=== PATIENT | female | born 1960 | race Caucasian/White ===

== ENCOUNTER 2019-03-29 13:30 | Inpatient (IN) | payer OTHER ==
[2019-03-29] VITALS (28 sets, daily range): BP systolic 46–238; BP diastolic 20–189; PULSE 75–112; RESP 18–38; Ht 157.5 cm; Wt 67.6 kg
[~2019-03-29] VITALS: Ht 157.5 cm; Wt 67.6 kg
[2019-03-29] MEDS ORDERED: ACETAMINOPHEN 650MG/20.3ML CUP NGT STA (13:38)
[2019-03-29] MEDS ORDERED: SODIUM CHLORIDE 0.9% 1L BAG IV* STA (13:38)
--- NOTE | 2019-03-29 13:44 | ERD ---
ER Documentation Chief Complaint Chief Complaint HPI This is a 58-year-old woman with a history of hemorrhagic stroke, respiratory fa ilure and mechanical ventilator dependence via tracheostomy tube, dysphagia with gastrostomy tube, bedbound state and recent urinary tract infection brought in by EMS [facility] for difficulty breathing, coughing, hypoxia. Nurses at the scene state her oxygen saturation dipped into the 80s and despite oxygen remained low which is when they called 911 although upon EMS arrival the patient's oxygen saturation had gone up to 100%. Patient did have a fever today. She has had no chest pain, no vomiting or diarrhea, no blood per rectum, although HPI limited as patient is nonverbal he was supplemented by speaking to her son who was at the bedside, EMS, reviewing past medical history and retirement records ROS All systems reviewed and are negative except as per history of present illness. Medications Home Meds Reported Medications Amantadine Hcl* (Amantadine Hcl*) 50 Mg/5 Ml Syrup, 10 ML GTB BID, #300 ML 03/29/19 Pantoprazole* (Protonix*) 40 Mg Tablet.dr, 40 MG GTB DAILY, TAB 03/29/19 Levetiracetam* (Keppra* (Ped)) 100 Mg/Ml Liq, 5 ML GTB BID for 30 Days, BOTTLE 03/29/19 Levothyroxine Sodium* (Synthroid*) 75 Mcg Tablet, 75 MCG GTB BEFORE BREAKFAST, #30 TAB 03/29/19 Prednisone* (Prednisone*) 5 Mg Tab, 5 MG GTB DAILY, TAB 03/29/19 Hydroxychloroquine Sulfate* (Plaquenil*) 200 Mg Tab, 200 MG GTB BID, TAB 03/29/19 Folic Acid* (Folic Acid*) 1 Mg Tablet, 1 MG GTB DAILY, TAB 03/29/19 Doxazosin Mesylate* (Doxazosin Mesylate*) 2 Mg Tablet, 2 MG GTB HS, TAB HOLD IF SBP<110 03/29/19 Calcium Carbonate (Oysco-500) 500 Mg Tablet, 500 MG GTB BID, TAB 03/29/19 L. Acidophilus/Pectin, [place] (Acidophilus Capsule) 1 Each Capsule, 1 EACH GTB DAILY, CAP 03/29/19 Insulin Regular, Human (Humulin R) 100 Unit/1 Ml Vial, 0 IJ SLIDING SCALE, VIAL IF BS 70-150=0 UNIT,151-200=2 UNITS,201-250=4 UNITS,251-300=6 UNITS, 301-350=8 UNITS, 351-400=10 UNITS,>400=12 UNITS. NOTIFY MD IF BS >400 OR<60. 03/29/19 Insulin Detemir (Levemir Flextouch) 100 Unit/1 Ml Insuln.pen, 5 UNIT SQ QHS, EA 03/29/19 Acetaminophen* (Acetaminophen*) 500 MG Extra Strength Tablet, 1000 MG GTB Q4H OR N for PAIN LEVEL 4-6, TAB 03/29/19 Acetaminophen* (Tylenol*) 325 Mg Tablet, 650 MG GTB NEEDED PRN for TRACH TUBE CHANGE, TAB 03/29/19 Acetaminophen* (Tylenol*) 325 Mg Tablet, 650 MG GTB Q4H PRN for MILD PAIN LEVEL 1-3, TAB AND FEVER 03/29/19 Acetaminophen* (Tylenol*) 325 Mg Tablet, 650 MG GTB BID PRN for PAIN AND OR ELEVATED TEMP, TAB 03/29/19 Zinc Sulfate* (Zinc Sulfate*) 220 Mg Tablet, 220 MG GTB DAILY, TAB 03/29/19 Ascorbic Acid (Vitamin C) 500 Mg Tab, 500 MG GTB DAILY, TAB 03/29/19 Multivitamin with Minerals (Multivitamins with Minerals) 1 Each Tablet, 1 EACH GTB DAILY, TAB 03/29/19 Amino Acids/Protein Hydrolys (PRO-STAT LIQUID) 30 Ml Liquid.pkt, 30 ML GTB DAILY SUGAR FREE 03/29/19 Mineral Oil* (Fleet* Mineral Oil Enema) Unknown Strength Oil, 1 APPLIC OR Q2D PRN for CONSTIPATION, ENEMA 03/29/19 Bisacodyl (Dulcolax) 10 Mg Supp.rect, 10 MG RC DAILY, SUPP.RECT 03/29/19 Magnesium Hydroxide* (Milk Of Magnesia*) 400 Mg/5 Ml Oral.susp, 30 ML GTB DAILY, ML 03/29/19 Sennosides* (Senna Lax*) 8.6 Mg Tablet, 2 TAB GTB DAILY, TAB 03/29/19 Cran/Vitc/Mannose/Inulin/Brom (Uti-Stat Liquid) 3,875 Mg/30 Ml Liquid, 30 ML GTB BID 03/29/19 Allergies Allergies: Coded Allergies: No Known Allergy (Unverified , 03/29/19) PMhx/Soc Past medical history of ruptured intracerebral aneurysm, mechanical ventilator dependent via tracheostomy tube, bedbound, dysphagia status post gastrostomy tube placement, hypothyroidism GERD, diabetes mellitus, Parkinson's disease, hypertension, osteoarthritis, seizure disorder, recent urinary tract infection requiring inpatient IV antibiotics FmHx Family History: No diabetes Physical Exam Vitals Vital Signs Date Temp Pulse Resp B/P (MAP) Pulse Ox O2 O2 Flow FiO2 Time Delivery Rate 03/29/19 99.9 111 18 140/104 100 Mechanical 14:37 (116) Ventilator 03/29/19 125 30 100 100 14:07 03/29/19 99.9 124 24 140/104 100 14:00 (116) 03/29/19 99.3 13:56 Physical Exam GENERAL: Well-developed, chronically debilitated, elderly, dehydrated, febrile HEENT: Dry mucous membranes, pink conjunctive a, tracheostomy tube in place without discharge NEURO: Patient's eyes are open, pupils equal round reactive to light, patient able to move her upper extremities, she has bilateral lower extremity paralysis and contractures, she is responsive to voice but nonverbal CARDIAC: Tachycardic and regular LUNGS: Poor breath sounds bilaterally, no wheezing or stridor ABDOMEN: Soft nontender, no guarding, no rigidity, no rebound, no psoas sign no obturator sign. SKIN: Skin is hot to touch, no hematomas abrasions contusions noted, low back, buttock, sacral skin exams deferred EXTREMITIES: No clubbing cyanosis or edema, calves are bilaterally symmetrical, no Homans sign, no popliteal cord sign. Distal pulses equal and bilateral PSYCH: Normal affect without agitation or irritability Result Diagram: 03/29/19 1350 03/29/19 1350 Results 24 hrs Laboratory Tests Test 03/29/19 13:38 03/29/19 13:44 03/29/19 13:50 Blood Gas Specimen Source Blood arterial Arterial Blood Date Drawn 03/29/2019 2:30:13 PM Arterial Blood pH 7.360 (Temp corrected) Arterial Blood pCO2 29.4 mmhg (Temp correct) Arterial Blood pO2 140.6 mmHG (Temp corrected) Arterial Blood HCO3 16.2 mmol/L Arterial Blood Base Excess -8.2 mmol/L Arterial Blood 98.2 mmHG Oxygen Saturation Christopher Test N/A Arterial Blood Gas Right Brachial Puncture Site Arterial 0.3 % Blood Carboxyhemoglobin Arterial Blood 0.3 % Methemoglobin Blood Gas A-a O2 543.0 mmHg Differential Oxyhemoglobin Percent 97.6 % Blood Gas Temperature 37.0 C Blood Gas Respiration Rate 14.0 Blood Gas Actual 31 Respiration Rate Blood Gas Modality VENT - AC FiO2 100.0 % Blood Gas Tidal Volume 450.0 mL Blood Gas Low PEEP Setting 5.0 cmH2O Blood Gas Notified Whom TM Blood Gas Notified Time 03/29/2019 2:38:43 PM POC Venous Lactate 5.3 mmol/L White Blood Count 11.7 10^3/ul Red Blood Count 3.17 10^6/ul Hemoglobin 9.4 g/dl Hematocrit 31.6 % Mean Corpuscular Volume 99.7 fl Mean Corpuscular Hemoglobin 29.7 pg Mean Corpuscular 29.7 g/dl Hemoglobin Concent Red Cell Distribution Width 17.0 % Platelet Count 341 10^3/UL Mean Platelet Volume 10.8 fl Immature Granulocytes % 2.600 % Neutrophils % % Segmented Neutrophils 6 % % (Manual) Band Neutrophils % (Manual) 50 % Lymphocytes % % Lymphocytes % (Manual) 10 % Reactive Lymphocytes 4 % % (Manual) Monocytes % % Monocytes % (Manual) 5 % Eosinophils % % Eosinophils % (Manual) 2 % Basophils % % Metamyelocytes % (manual) 5 % Myelocytes % (Manual) 16 % Promyelocytes % (Manual) 2 % Nucleated Red Blood Cells % 0.3 /100WBC Immature Granulocytes # 0.310 10^3/ul Neutrophils # 10^3/ul Neutrophils # (Manual) 1.4 10^3/ul Band Neutrophils # 5.8 10^3/ul Lymphocytes (Manual) 1.1 10^3/ul Lymphocytes # 10^3/ul Reactive Lymphocytes # 0.4 10^3/ul Monocytes # 10^3/ul Monocytes # (Manual) 0.5 10^3/ul Eosinophils # 10^3/ul Basophils # 10^3/ul Metamyelocytes # 0.5 10^3/ul Myelocytes # 1.8 10^3/ul Promyelocytes # 0.2 10^3/ul Nucleated Red Blood Cells # 10^3/ul Platelet Estimate NORMAL Giant Platelets 2 % Polychromasia 1+ Poikilocytosis 1+ Anisocytosis 1+ Microcytosis 1+ Prothrombin Time 15.4 Sec Prothrombin Time Ratio 1.2 INR International 1.21 Normalized Ratio Activated 30.1 Sec Partial Thromboplast Time Sodium Level 148 mmol/L Potassium Level 4.7 mmol/L Chloride Level 108 mmol/L Carbon Dioxide Level 20 mmol/L Anion Gap 20 Blood Urea Nitrogen 85 mg/dl Creatinine 4.80 mg/dl Est Glomerular Filtrat 9 mL/min Rate mL/min Glucose Level 81 mg/dl Calcium Level 11.9 mg/dl Total Bilirubin 0.5 mg/dl Direct Bilirubin 0.00 mg/dl Indirect Bilirubin 0.5 mg/dl Aspartate Amino 34 IU/L Transf (AST/SGOT) Alanine 21 IU/L Aminotransferase (ALT/SGPT) Alkaline Phosphatase 212 IU/L Troponin I 0.034 ng/ml Total Protein 6.6 g/dl Albumin 3.4 g/dl Globulin 3.20 g/dl Albumin/Globulin Ratio 1.06 Lipase 14 U/L Current Medications Medications Dose Sig/Mer Start Time Status Last (Trade) Ordered Route PRN Stop Time Admin Dose Reason Admin Sodium 3,000 ml BOLUS OVER 2 03/29/19 DC 03/29/19 Chloride HOURS STAT 13:38 13:56 (NS) IV* 03/29/19 13:42 650 mg ONCE STAT 03/29/19 DC 03/29/19 Acetaminophen NGT 13:38 13:56 (Tylenol 03/29/19 13:42 Liquid) Cefepime HCl 50 ml @ ONCE ONCE 03/29/19 DC 03/29/19 100 mls/hr IVPB 14:00 13:54 03/29/19 14:29 Vancomycin 250 ml @ ONCE ONCE 03/29/19 03/29/19 HCl 125 mls/hr IVPB 14:00 14:43 03/29/19 15:59 Procedures/MDM IV line was established patient was placed on security monitor rhythm strip revealed a narrow complex tachycardia at 120 bpm with upright P and T waves. Patient was febrile, blood and urine cultures were ordered results are pending I will follow-up EKG performed, read by me revealed a sinus tachycardia at 150 bpm, normal axis, narrow QRS complex, no concerning ST elevations or depressions noted 1 view chest x-ray performed, read by me patient has a tracheostomy tube in place with the right upper and lower lobe infiltrates and atelectatic changes bilaterally, no pneumothorax, no air under the diaphragm. Patient was dehydrated and febrile I administered 3 L normal saline IV, acetaminophen for fever, cefepime 1 g IV, and vancomycin 1 g IV CBC reveals mild anemia with a hemoglobin of 9.4, electrolytes revealed dehydration acute kidney injury with a BUN/creatinine of 85/4.8, liver function tests normal, troponin negative, lactic acid elevated just above 5. ABG performed. Reveals a pH of 7.36, PCO2 29, PO2 141. Normal patient's infectious symptoms have not stabilized and the patient is at risk of rapid decompensation. The patient will be admitted for careful hydration, antibiotic therapy, and infectious source control. SEVERE SEPSIS CRITERIA: Infectious source: Healthcare associated pneumonia End organ damage indicated by: [Lactate > 2.0 mmol/L Acute Resp Failure (sat < 92% w/o oxygen) SEPSIS MANAGEMENT Time of recognition of sepsis: Upon arrival. Time of recognition of severe sepsis: No severe sepsis at this time. Time of recognition of septic shock: No septic shock at this time. 3 HOUR BUNDLE Blood cultures x 2 before broad-spectrum antibiotics: Yes 30 ml/kg NS bolus completed Initial lactate 5.3 Repeat lactate pending SEPTIC SHOCK ASSESSMENT: Yes lactic acid > 4.0 No persistent hypotension (SBP < 90 or 40 mmHg drop, MAP < 65) despite 30 mL/kg IV fluid bolus VOLUME REASSESSMENT FOR SEPTIC SHOCK: Reevaluation Time: 1530 Temp 99 F, BP 115/78, pulse 100 bpm, oxygen saturation 100%, respiratory rate 18 breaths/min on mechanical ventilator Heart tachycardic and regular Lungs no crackles Skin warm & dry Cap Refill less than 2 seconds Peripheral pulses radially present PERSISTENT HYPOTENSION TREATMENT: Comfort care no Central line: Not Required at this time, patient's blood pressure is well above 100 mmHg and her tachycardia has improved with just over 1 L of IV crystalloid, if at any time her blood pressure begins to fall I will place a central line Vasopressor started not required I considered further perfusion assessment with CVP measurement, SCVO2, bedside ultrasound volume assessment, passive leg raise, trial of further fluid bolus. And proceeded with 30 ml/kg fluid bolus of NSS, broad spectrum antibiotics, and admission. CRITICAL CARE: Critical care time 35 minutes, this was time separate from other billable procedures. Emergent fluid management while maintaining close respiratory support. Provision of immediate and broad-spectrum antibiotic therapy. Simultaneous assessment for possible sources in order to direct targeted therapy. Consideration for invasive and chemical support to prevent cardiopulmonary collapse. Critical care time is independent of procedures performed. Accepting Care Team: Current data and ongoing care discussed. Time: Time of admission Primary Provider: Hospitalist Consulting: Infectious disease Outstanding Data: none Departure Diagnosis: Primary Impression: Acute respiratory failure Respiratory failure complication: hypoxia and hypercapnia Qualified Codes: J96.01 - Acute respiratory failure with hypoxia; J96.02 - Acute respiratory failure with hypercapnia Additional Impressions: Septic shock Healthcare-associated pneumonia Acute dehydration Acute kidney injury Condition: Serious ROBIN WOO MD March 29, 2019 13:44
[2019-03-29] MEDS ORDERED: CEFEPIME 1GM/50 ML (PMX) 50 ML IVPB ONE (14:00)
[2019-03-29] MEDS ORDERED: VANCOMYCIN 1 GM (PMX) 250 ML IVPB ONE (14:00)
[2019-03-29] MEDS ORDERED: CRAN3875 GTB (14:54)
[2019-03-29] MEDS ORDERED: SENN-120 GTB (14:55)
[2019-03-29] MEDS ORDERED: MAGN400O19 GTB (14:55)
[2019-03-29] MEDS ORDERED: BISA10SU55 RC (14:56)
[2019-03-29] MEDS ORDERED: MINE133E23 PR (14:57)
[2019-03-29] MEDS ORDERED: AMIN30LI GTB (14:58)
[2019-03-29] MEDS ORDERED: ASC500 GTB (14:59)
[2019-03-29] MEDS ORDERED: MULT-105 GTB (14:59)
[2019-03-29] MEDS ORDERED: ZINC220T GTB (15:00)
[2019-03-29] MEDS ORDERED: ACET325T33 GTB ×3 (15:03→15:04)
[2019-03-29] MEDS ORDERED: ACET-141 GTB (15:04)
[2019-03-29] MEDS ORDERED: INSU100I27 SQ (15:05)
[2019-03-29] MEDS ORDERED: INSU100V3 IJ (15:08)
[2019-03-29] MEDS ORDERED: L. A1CAP12 GTB (15:10)
[2019-03-29] MEDS ORDERED: CALC500T11 GTB (15:11)
[2019-03-29] MEDS ORDERED: DOXA2TAB GTB (15:12)
[2019-03-29] MEDS ORDERED: FOLI-49 GTB (15:13)
[2019-03-29] MEDS ORDERED: HYDR200T5 GTB (15:13)
[2019-03-29] MEDS ORDERED: LEVO75TA84 GTB (15:14)
[2019-03-29] MEDS ORDERED: PRED5TAB GTB (15:14)
[2019-03-29] MEDS ORDERED: KEP100S GTB (15:16)
[2019-03-29] MEDS ORDERED: PANT40TA3 GTB (15:17)
[2019-03-29] MEDS ORDERED: UDSYM GTB (15:19)
[2019-03-29] MEDS ORDERED: SOD CHLORIDE 0.9% 1,000 ML IV SCH (15:54)
[2019-03-29] MEDS ORDERED: NACL 0.9% 3 ML SYG IV SCH (16:00)
[2019-03-29] MEDS ORDERED: VANCOMYCIN IV PER PHARMACY XX SCH (16:00)
[2019-03-29] MEDS ORDERED: ONDANSETRON 4 MG INJ IV PRN (16:00)
--- NOTE | 2019-03-29 16:00 | HP ---
Date/Time of Note Date/Time of Note DATE: 03/29/19 TIME: 15:52 Assessment/Plan VTE Prophylaxis Pharmacological prophylaxis: NA/contraindicated Pharm contraindication: renal impairment Lines/Catheters IV Catheter Type (from Nrs): Saline Lock Assessment/Plan Hospital Course 1. Sepsis secondary to HCAP and/or aspiration pneumonia Patient with fevers and leukocytosis Broad-spectrum antibiotics with vancomycin and Zosyn ID consultation obtained Admit to ICU 2. Chronic encephalopathy and respiratory failure Patient resides in a subacute facility Continue vent support Pulmonology consultation 3. Acute kidney injury versus CKD Baseline creatinine unknown IV fluids and monitor Nephrology consultation obtained Renal ultrasound 4. Diabetes Schedule insulin and sliding scale 5. History of hypertension Hold home meds secondary to sepsis Prophylaxis: SCDs Result Diagram: 03/29/19 1350 03/29/19 1350 Results 24hrs Laboratory Tests Test 03/29/19 13:38 03/29/19 13:44 03/29/19 13:50 Blood Gas Specimen Source Blood arterial Arterial Blood Date Drawn 03/29/2019 2:30:13 PM Arterial Blood pH 7.360 (Temp corrected) Arterial Blood pCO2 29.4 L (Temp correct) Arterial Blood pO2 140.6 H (Temp corrected) Arterial Blood HCO3 16.2 L Arterial Blood Base Excess -8.2 L Arterial Blood 98.2 H Oxygen Saturation Christopher Test N/A Arterial Blood Gas Right Brachial Puncture Site Arterial 0.3 Blood Carboxyhemoglobin Arterial Blood Methemoglobin 0.3 Blood Gas A-a O2 543.0 H Differential Oxyhemoglobin Percent 97.6 Blood Gas Temperature 37.0 Blood Gas Respiration Rate 14.0 Blood Gas Actual 31 Respiration Rate Blood Gas Modality VENT - AC FiO2 100.0 Blood Gas Tidal Volume 450.0 Blood Gas Low PEEP Setting 5.0 Blood Gas Notified Whom TM Blood Gas Notified Time 03/29/2019 2:38:43 PM POC Venous Lactate 5.3 *H White Blood Count 11.7 H Red Blood Count 3.17 L Hemoglobin 9.4 L Hematocrit 31.6 L Mean Corpuscular Volume 99.7 Mean Corpuscular Hemoglobin 29.7 Mean Corpuscular 29.7 L Hemoglobin Concent Red Cell Distribution Width 17.0 H Platelet Count 341 Mean Platelet Volume 10.8 H Immature Granulocytes % 2.600 H Neutrophils % Segmented Neutrophils 6 L % (Manual) Band Neutrophils % (Manual) 50 H Lymphocytes % Lymphocytes % (Manual) 10 L Reactive Lymphocytes 4 H % (Manual) Monocytes % Monocytes % (Manual) 5 Eosinophils % Eosinophils % (Manual) 2 Basophils % Metamyelocytes % (manual) 5 H Myelocytes % (Manual) 16 H Promyelocytes % (Manual) 2 H Nucleated Red Blood Cells % 0.3 H Immature Granulocytes # 0.310 H Neutrophils # Neutrophils # (Manual) 1.4 L Band Neutrophils # 5.8 H Lymphocytes (Manual) 1.1 Lymphocytes # Reactive Lymphocytes # 0.4 H Monocytes # Monocytes # (Manual) 0.5 Eosinophils # Basophils # Metamyelocytes # 0.5 H Myelocytes # 1.8 H Promyelocytes # 0.2 H Nucleated Red Blood Cells # Platelet Estimate NORMAL Giant Platelets 2 H Polychromasia 1+ Poikilocytosis 1+ Anisocytosis 1+ Microcytosis 1+ Prothrombin Time 15.4 H Prothrombin Time Ratio 1.2 INR International 1.21 Normalized Ratio Activated 30.1 Partial Thromboplast Time Sodium Level 148 H Potassium Level 4.7 Chloride Level 108 Carbon Dioxide Level 20 L Anion Gap 20 H Blood Urea Nitrogen 85 H Creatinine 4.80 H Est Glomerular Filtrat 9 L Rate mL/min Glucose Level 81 Calcium Level 11.9 H Total Bilirubin 0.5 Direct Bilirubin 0.00 Indirect Bilirubin 0.5 Aspartate Amino 34 Transf (AST/SGOT) Alanine 21 Aminotransferase (ALT/SGPT) Alkaline Phosphatase 212 H Troponin I 0.034 Total Protein 6.6 Albumin 3.4 Globulin 3.20 Albumin/Globulin Ratio 1.06 Lipase 14 L HPI/ROS Admit Date/Time Admit Date/Time March 29, 2019 Hx of Present Illness Patient is a 58-year-old female with a history of diabetes, hypertension and brain aneurysm rupture approximately 4 months ago with chronic encephalopathy and respiratory failure, patient resides in a subacute [facility]. Patient does have history of recent pneumonia status post antibiotic course. Patient had a chest x-ray at the facility which showed pneumonia and was transferred to the ER. In the ER chest x-ray showed bilateral pneumonia, leukocytosis was noted as well as renal failure. Patient is unable to provide history and history is obtained from son who is bedside. ROS Subjective hx not possible: pt non-verbal PMH/Family/Social Past Medical History As per HPI Medications Current Medications Vancomycin HCl 250 ml @ 125 mls/hr ONCE ONCE IVPB Last administered on 03/29/19at 14:43; Admin Dose 125 MLS/HR; Start 03/29/19 at 14:00; Stop 03/29/19 at 15:59 Coded Allergies: No Known Allergy (Unverified , 03/29/19) Family History Significant Family History: no pertinent family hx Social History Alcohol Use: none Smoking Status: Never smoker Drug Use: none Exam/Review of Systems Vital Signs Vitals Vital Signs Date Temp Pulse Resp B/P (MAP) Pulse Ox O2 O2 Flow FiO2 Time Delivery Rate 03/29/19 99.9 111 18 140/104 100 Mechanical 14:37 (116) Ventilator 03/29/19 100 14:07 Exam Constitutional: non-verbal ENMT: other (Tracheostomy) Respiratory: clear to auscultation Cardiovascular: regular rate and rhythm Gastrointestinal: soft; No distended Musculoskeletal: nl extremities to inspection LIBRA MARTINEZ March 29, 2019 16:00
[2019-03-29] MEDS ORDERED: DEXTROSE 50% 50 ML SYRINGE IV PRN ×2 (17:00)
[2019-03-29] MEDS ORDERED: GLUCAGON 1 MG INJ IM PRN (17:00)
[2019-03-29] MEDS ORDERED: GLUCOSE GEL 15 GRAM TUBE PO PRN ×2 (17:00)
[2019-03-29] MEDS ORDERED: GLUCOSE GEL 15 GRAM TUBE BUCCAL PRN (17:00)
[2019-03-29] MEDS: PIPER-TAZO 2.25 GM/NS 50 ML IVPB SCH (17:35)
--- NOTE | 2019-03-29 17:45 | CONS ---
DATE OF ADMISSION: 03/29/2019 DATE OF CONSULTATION: 03/29/2019 TYPE OF CONSULTATION: Infectious disease. REASON FOR CONSULTATION: Antibiotic management. HISTORY OF PRESENT ILLNESS: Millicent Parrish is a 58-year-old female currently in the emergency room. She has history of: 1. Hemorrhagic stroke. 2. Respiratory failure on mechanical ventilatory dependence. 3. Status post tracheostomy. 4. Dysphagia with gastrostomy tube. 5. Bed bound. 6. Recent urinary tract infection. The patient was brought into the custodial facility by EMS for difficulty breathing, coughing a nd hypoxia. Her oxygen saturation dips into the 80s despite supplemental oxygen. It subsequently we nt up to 100%. She had a fever today. She had no chest pain. The patient is nonverbal. She is jacob betic on insulin. PAST MEDICAL HISTORY: Also positive for ruptured intracerebral aneurysm, GERD, Parkinson's disease, seizure disorder and recent urinary tract infections requiring the patient on IV antibiotics. FAMILY HISTORY: Noncontributory. SOCIAL HISTORY: She does not smoke, drink or abuse drugs. ALLERGIES: NONE TO PENICILLIN, SULFA OR FOODS. MEDICATIONS: Per chart. REVIEW OF SYSTEMS: As per HPI. PHYSICAL EXAMINATION: GENERAL: The patient is a well-developed, chronically debilitated elderly female. VITAL SIGNS: Stable. T-max 99.9. SKIN: Without generalized rash. HEENT: She has tracheostomy tube in place. LYMPH NODES: None palpable. CHEST: Decreased breath sounds at the bases. HEART: Without murmur or gallop. She is tachycardic. ABDOMEN: Soft, nontender without organosplenomegaly or masses. EXTREMITIES: Without cyanosis, clubbing or edema. RECTAL AND GENITAL: Deferred. NEUROLOGIC: She has bilateral lower extremity paralysis and contractures. She responds to voice but is nonverbal. ANCILLARY LABORATORY DATA: White count 11.7, H and H 9.4 and 31.6, platelet count 341,000. BUN and creatinine is 85/4.80. IMPRESSION AND PLAN: This is an extremely ill 58-year-old female with history of stroke, Parkinson's disease, ventilatory-dependent respiratory failure, dysphagia on G-tube, renal failure with creatini ne of 4.8 and probably good candidate for hospice. She has sepsis probably secondary to healthcare-a cquired pneumonia. She was started on vancomycin and Zosyn. She will be admitted to the intensive c are unit. Her influenza type A and B are negative. We will continue vancomycin and Zosyn. She had 1 dose of cefepime. I will dictate my findings to the hospitalist. Dictated By: JACOBY HAGER MD, JD/CRISPIN Conf#: [id number] DID#: [id number] CC: LIBRA MARTINEZ MD;*EndCC*
[2019-03-29] MEDS ORDERED: PIPER-TAZO 3.375 GM IV (PMX) 100 ML IVPB SCH (18:00)
[2019-03-29] MEDS ORDERED: LABETALOL HCL 20MG INJ IV PRN (18:00)
[2019-03-29] MEDS ORDERED: INSULIN GLARGINE [LANTus] (100 UNITS/ML) SYG SC SCH (21:00)
[2019-03-29] MEDS: INSULIN GLARGINE [LANTus] (100 UNITS/ML) SYG SC SCH (21:00)
[2019-03-29] MEDS: AMANTADINE 100 MG/10 ML POSYR GTB SCH (21:02)
[2019-03-29] MEDS: CALCIUM CARBONATE 500 MG CHEW TAB GTB SCH (21:02)
[2019-03-29] MEDS: LEVETIRACETAM (100 MG/ML PO SYG) GTB SCH (21:02)
[2019-03-29] MEDS: morphine 2 MG INJ IV PRN (21:03)
[2019-03-29] MEDS: DEXTROSE 5%-0.45% NACL 1,000 ML IV SCH (21:30)
[2019-03-29] MEDS ORDERED: PHENYLephrine 20MG IN 250 ML 250 ML ONE (22:06)
[2019-03-29] MEDS: PHENYLephrine 20MG IN 250 ML 250 ML IV SCH (22:33)
[2019-03-30] VITALS (94 sets, daily range): BP systolic 66–127; BP diastolic 47–88; PULSE 69–89; RESP 14–37
[2019-03-30] MEDS: PHENYLephrine 20MG IN 250 ML 250 ML IV SCH ×2 (00:10→01:49)
[2019-03-30] MEDS: PIPER-TAZO 2.25 GM/NS 50 ML IVPB SCH ×4 (00:29→21:49)
[2019-03-30] MEDS ORDERED: SODIUM CHLORIDE 0.45% 500 ML BAG IV* ONE (01:00)
[2019-03-30] MEDS ORDERED: ALBUMIN HUMAN 25% 100 ML IV ONE (01:30)
[2019-03-30] MEDS ORDERED: SOD CHLORIDE 0.9% 250 ML IV ONE (01:30)
[2019-03-30] MEDS: ACCU-CHEK XX SCH ×6 (01:43→20:58)
[2019-03-30] MEDS ORDERED: SOD CHLORIDE 0.9% 100 ML IV ONE (02:00)
[2019-03-30] MEDS: PHENYLephrine 80 MG in DEXTROSE 5% 242 ML IV SCH ×4 (03:21→23:18)
[2019-03-30] MEDS: LEVOTHYROXINE 75 MCG TAB GTB SCH (06:18)
[2019-03-30] MEDS: SENNA TAB GTB SCH (09:00)
[2019-03-30] MEDS: MAGNESIUM HYDROXIDE 30ML CUP GTB SCH (09:58)
[2019-03-30] MEDS: LEVETIRACETAM (100 MG/ML PO SYG) GTB SCH ×2 (09:58→21:49)
[2019-03-30] MEDS: FOLIC ACID 1 MG TAB GTB SCH (09:59)
[2019-03-30] MEDS: AMANTADINE 100 MG/10 ML POSYR GTB SCH ×2 (09:59→20:58)
[2019-03-30] MEDS: ASCORBIC ACID 500 MG TAB GTB SCH (09:59)
[2019-03-30] MEDS: ZINC SULFATE 220 MG CAP GTB SCH (10:00)
[2019-03-30] MEDS: CALCIUM CARBONATE 500 MG CHEW TAB GTB SCH ×2 (10:00→20:58)
--- NOTE | 2019-03-30 10:48 | CONS ---
Assessment/Plan Assessment/Plan Hospital Course (Demo Recall) ID PROGRESS NOTE CURRENT ABX: DAY # 2-> Vanco IV + Zosyn 03/30/19 0437 03/30/19 0437 24H INTERVAL SUMMARY * Awake, follows commands, low grade TMAX 100.+, hemodynamics improved w/ABX, Chart reviewed DIAGNOSTIC IMAGING * 03/29/19 CXR:Right upper lobe and bilateral lower lobe infiltrates.Small right pleural effusion. * 03/28/2019 MICRO/OTHER * 03/29/19: INFLUENZA A & B BY EIA Final INFLU A&B BY EIA INFLUENZA A NEGATIVE (Ref Range Neg) INFLUENZA B NEGATIVE (Ref Range Neg) * 03/29/19 BCX (+) Organism 1 GRAM POS COCCI IN PAIR,CLUSTER PHYSICAL EXAMINATION: GENERAL: VSS HEENT: AT, NC, anicteric NECK: Supple, CHEST: Equal chest rise bilaterally, without dyspnea on observation HEART: Pulse RRR ABDOMEN: Soft / NT EXTREMITIES: Warm, BLEXT SKIN: multiple stg 2 on the buttocks, upper and lower back, with generalized skin rashes. ID ASSESSMENT 58 yo F w/PMHx encephalopathy 2/2 SAH-> hx of Ventric, chronic VDRF admit with: 1. Sepsis on admission w/tachycardia, fevers, HTN crisis-> low B/P, lactic acidosis due to #2 * 03/29/19 BCX (+) Organism 1 GRAM POS COCCI IN PAIR,CLUSTER 2. Bilateral PNA 3. Chronic VDRF 4. HTN 5. Diabetes 6. Acute on chronic kidney disease 7. Dysphagia-> PEG 8. GERD 9. Chronic bedbound state 10. Multiple pressure decubs 11. Hx of recent UTI ABX ALLERGIES: NKDA INVASIVES: PIV CURRENT ABX: DAY #2-> Vanco IV + Zosyn ID RECOMMENDATIONS/PLAN: 1. Continue current ABX 2. Check MRSA nares 3. Obtain respiratory cx 4. Repeat BCx . . Consultation Date/Type/Reason Admit Date/Time March 29, 2019 at 14:37 Initial Consult Date Date/Time of Note DATE: 03/30/19 TIME: 10:35 Exam/Review of Systems Exam Vitals Vital Signs Date Temp Pulse Resp B/P (MAP) Pulse Ox O2 O2 Flow FiO2 Time Delivery Rate 03/30/19 82 22 94/62 (73) 100 09:45 03/30/19 100.1 Mechanica 08:00 l Ventilato r 03/30/19 40 05:10 Intake and Output 03/29/19 03/29/19 03/30/19 1515:00 23:00 07:00 IntakeIntake Total 397 ml 1731.49 ml OutputOutput Total 29 ml 45 ml BalanceBalance 368 ml 1686.49 ml Results Result Diagram: 03/30/19 0437 03/30/19 0437 Results 24hrs Laboratory Tests Test 03/29/19 13:38 03/29/19 13:44 03/29/19 13:50 03/29/19 17:35 Blood Gas Blood arterial Specimen Source Arterial Blood 03/29/2019 2:30:1 Date Drawn 3 PM Arterial Blood pH 7.360 (Temp corrected) Arterial Blood 29.4 L pCO2 (Temp correct) Arterial Blood 140.6 H pO2 (Temp corrected) Arterial Blood 16.2 L HCO3 Arterial Blood -8.2 L Base Excess Arterial Blood 98.2 H Oxygen Saturation Christopher Test N/A Arterial Blood Right Brachial Gas Puncture Site Arterial 0.3 Blood Carboxyhemo globin Arterial Blood 0.3 Methemoglobin Blood Gas A-a O2 543.0 H Differential Oxyhemoglobin 97.6 Percent Blood Gas 37.0 Temperature Blood Gas 14.0 Respiration Rate Blood Gas Actual 31 Respiration Rate Blood Gas VENT - AC Modality FiO2 100.0 Blood Gas Tidal 450.0 Volume Blood Gas Low 5.0 PEEP Setting Blood Gas TM Notified Whom Blood Gas 03/29/2019 2:38:4 Notified Time 3 PM POC Venous 5.3 *H Lactate White Blood Count 11.7 H Red Blood Count 3.17 L Hemoglobin 9.4 L Hematocrit 31.6 L Mean Corpuscular 99.7 Volume Mean Corpuscular 29.7 Hemoglobin Mean Corpuscular 29.7 L Hemoglobin Concen t Red Cell 17.0 H Distribution Width Platelet Count 341 Mean Platelet 10.8 H Volume Immature 2.600 H Granulocytes % Neutrophils % Segmented 6 L Neutrophils % (Manual) Band Neutrophils 50 H % (Manual) Lymphocytes % Lymphocytes % 10 L (Manual) Reactive 4 H Lymphocytes % (Manual) Monocytes % Monocytes % 5 (Manual) Eosinophils % Eosinophils % 2 (Manual) Basophils % Metamyelocytes % 5 H (manual) Myelocytes % 16 H (Manual) Promyelocytes % 2 H (Manual) Nucleated Red 0.3 H Blood Cells % Immature 0.310 H Granulocytes # Neutrophils # Neutrophils # 1.4 L (Manual) Band Neutrophils 5.8 H # Lymphocytes 1.1 (Manual) Lymphocytes # Reactive 0.4 H Lymphocytes # Monocytes # Monocytes # 0.5 (Manual) Eosinophils # Basophils # Metamyelocytes # 0.5 H Myelocytes # 1.8 H Promyelocytes # 0.2 H Nucleated Red Blood Cells # Platelet Estimate NORMAL Giant Platelets 2 H Polychromasia 1+ Poikilocytosis 1+ Anisocytosis 1+ Microcytosis 1+ Prothrombin Time 15.4 H Prothrombin Time 1.2 Ratio INR International 1.21 Normalized Ratio Activated 30.1 Partial Thrombopl ast Time Sodium Level 148 H Potassium Level 4.7 Chloride Level 108 Carbon Dioxide 20 L Level Anion Gap 20 H Blood Urea 85 H Nitrogen Creatinine 4.80 H Est Glomerular 9 L Filtrat Rate mL/min Glucose Level 81 Calcium Level 11.9 H Total Bilirubin 0.5 Direct Bilirubin 0.00 Indirect 0.5 Bilirubin Aspartate Amino 34 Transf (AST/SGOT) Alanine 21 Aminotransferase (ALT/SGPT) Alkaline 212 H Phosphatase Troponin I 0.034 Total Protein 6.6 Albumin 3.4 Globulin 3.20 Albumin/Globulin 1.06 Ratio Lipase 14 L Lactic Acid Level 10.5 *H Test 03/29/19 21:08 03/30/19 01:29 03/30/19 04:37 03/30/19 05:01 Bedside Glucose 72 88 117 White Blood Count 13.6 H Red Blood Count 2.69 L Hemoglobin 8.0 L Hematocrit 26.6 L Mean Corpuscular 98.9 Volume Mean Corpuscular 29.7 Hemoglobin Mean Corpuscular 30.1 L Hemoglobin Concen t Red Cell 17.2 H Distribution Width Platelet Count 316 Mean Platelet 10.4 Volume Immature 1.300 H Granulocytes % Neutrophils % Segmented 16 L Neutrophils % (Manual) Band Neutrophils 46 H % (Manual) Lymphocytes % Lymphocytes % 21 (Manual) Reactive 1 H Lymphocytes % (Manual) Monocytes % Monocytes % 1 (Manual) Eosinophils % Basophils % Basophils % 1 (Manual) Metamyelocytes % 8 H (manual) Myelocytes % 6 H (Manual) Nucleated Red 0.0 Blood Cells % Immature 0.180 H Granulocytes # Neutrophils # Neutrophils # 3.0 (Manual) Band Neutrophils 6.2 H # Lymphocytes 2.8 (Manual) Lymphocytes # Reactive 0.1 H Lymphocytes # Monocytes # Monocytes # 0.1 L (Manual) Eosinophils # Basophils # Basophils # 0.1 H (Manual) Metamyelocytes # 1.0 H Myelocytes # 0.8 H Nucleated Red Blood Cells # Toxic Granulation 2+ Platelet Estimate NORMAL Poikilocytosis 2+ Anisocytosis 1+ Microcytosis 1+ Sodium Level 148 H Potassium Level 4.8 Chloride Level 114 H Carbon Dioxide 17 L Level Anion Gap 17 H Blood Urea 77 H Nitrogen Creatinine 3.92 H Est Glomerular 12 L Filtrat Rate mL/min Glucose Level 98 Hemoglobin A1c 5.9 Calcium Level 10.0 Phosphorus Level 4.8 Magnesium Level 2.1 Test 03/30/19 09:56 Bedside Glucose 76 Medications Medication Current Medications IV Flush (NS 3 ml) 3 ml PER PROTOCOL IV ; Start 03/29/19 at 16:00 Ondansetron HCl (Zofran Inj) 4 mg Q6H PRN IV NAUSEA/VOMITING; Start 03/29/19 at 16:00 Morphine Sulfate (morphine) 2 mg Q4H PRN IV .SEVERE PAIN 7-10 Last administered on 03/29/19at 21:03; Admin Dose 2 MG; Start 03/29/19 at 16:00 Vancomycin HCl (Vanco Iv Per Pharmacy) VANCOMYCIN PER PHARMACY PER PROTOCOL XX ; Start 03/29/19 at 16:00 Amantadine HCl (Symmetrel) 100 mg BID GTB Last administered on 03/30/19at 09:59; Admin Dose 100 MG; Start 03/29/19 at 21:00 Ascorbic Acid (Vitamin C) 500 mg DAILY GTB Last administered on 03/30/19 09:59; Admin Dose 500 MG; Start 03/30/19 at 09:00 Calcium Carbonate (Tums) 500 mg BID GTB Last administered on 03/30/19at 10:00; Admin Dose 500 MG; Start 03/29/19 at 21:00 Folic Acid (Folic Acid) 1 mg DAILY GTB Last administered on 03/30/19 09:59; Admin Dose 1 MG; Start 03/30/19 at 09:00 Levetiracetam (Keppra Liq (Ped)) 500 mg BID GTB Last administered on 5/11/19at 09:58; Admin Dose 500 MG; Start 03/29/19 at 21:00 Levothyroxine Sodium (Synthroid) 75 mcg BEFORE BREAKFAST GTB Last administered on 03/30/19at 06:18; Admin Dose 75 MCG; Start 03/30/19 at 07:00 Magnesium Hydroxide (Milk Of Mag) 30 ml DAILY GTB Last administered on 03/30/19at 09:58; Admin Dose 30 ML; Start 03/30/19 at 09:00 Senna (Senokot) 2 tab DAILY GTB ; Start 03/30/19 at 09:00 Zinc Sulfate (Zinc Sulfate) 220 mg DAILY GTB Last administered on 03/30/19at 10:00; Admin Dose 220 MG; Start 03/30/19 at 09:00 Miscellaneous Information 1 ea NOTE XX ; Start 03/29/19 at 17:00 Glucose (Glutose) 15 gm Q15M PRN PO DECREASED GLUCOSE; Start 03/29/19 at 17:00 Glucose (Glutose) 22.5 gm Q15M PRN PO DECREASED GLUCOSE; Start 03/29/19 at 17:00 Dextrose (D50w Syringe) 25 ml Q15M PRN IV DECREASED GLUCOSE; Start 03/29/19 at 17:00 Dextrose (D50w Syringe) 50 ml Q15M PRN IV DECREASED GLUCOSE; Start 03/29/19 at 17:00 Glucagon (Glucagen) 1 mg Q15M PRN IM DECREASED GLUCOSE; Start 03/29/19 at 17:00 Glucose (Glutose) 15 gm Q15M PRN BUCCAL DECREASED GLUCOSE; Start 03/29/19 at 17:00 Labetalol HCl (Labetalol) 20 mg Q4 PRN IV sbp >170 Last administered on 03/29/19at 17:55; Admin Dose 20 MG; Start 03/29/19 at 18:00 Insulin Glargine (Lantus) 5 units QHS SC ; Start 03/29/19 at 21:00 Diagnostic Test (Pha) (Accu-Chek) 1 ea Q4 XX Last administered on 03/30/19at 05:02; Admin Dose 1 EA; Start 03/30/19 at 01:00 Dextrose/Sodium Chloride 1,000 ml @ 75 mls/hr [id number] IV Last administered on 03/29/19at 21:30; Admin Dose 75 MLS/HR; Start 03/29/19 at 21:30 Phenylephrine HCl 80 mg/Dextrose 250 ml @ 18.75 mls/ hr TITRATE IV Last administered on 03/30/19at 10:10; Admin Dose 26.25 MLS/HR; Start 03/30/19 at 01:00 Piperacillin Sod/ Tazobactam Sod 50 ml @ 100 mls/hr Q8 IVPB ; Start 03/30/19 at 14:00 SHO GARCIA NP March 30, 2019 10:46
[2019-03-30] MEDS: DEXTROSE 5%-0.45% NACL 1,000 ML IV SCH (11:50)
[2019-03-30] MEDS ORDERED: FENTAnyl (DRIP) 1000 mcg/100mL 100 ML IV ONE (14:39)
--- NOTE | 2019-03-30 15:03 | CONS ---
Assessment/Plan Assessment/Plan Assessment/Plan (Daily) IMP: 1. Septic Shock--2/2 HCAP +/- urosepsis 2. HCAP 3. VDRF 4. Chronic Encephalopathy 5. FE 6. H/O Aneurysm s/p repair 7. Lactic Acidosis 2/2 #1 RECS: 1. Aggressive fluid resuscitation 2. Follow lactate clearance 3. Needs CVC 4. Broad spectrum abx 5. Follow-up cultures 6. Pressors to MAP > 65 mm Hg 7. Fentanyl gtt 8. VTE and GI prophylaxis Consultation Date/Type/Reason Admit Date/Time March 29, 2019 at 14:37 Date of Consultation: March 31, 2019 Type of Consult Pulm/CCM Date/Time of Note DATE: 03/30/19 TIME: 14:54 Hx of Present Illness Briefly, this is a 58-year-old female with a history of diabetes, hypertension and brain aneurysm rupture approximately 4 months ago with chronic encephalopathy and respiratory failure, vent dependence, resident of a SNF, admitted for septic shock likely due to HCAP and possible urosepsis now requiring vasopressor support. Past Medical History Medical History: urinary tract infection Home Meds Reported Medications Amantadine Hcl* (Amantadine Hcl*) 50 Mg/5 Ml Syrup, 10 ML GTB BID, #300 ML 03/29/19 Pantoprazole* (Protonix*) 40 Mg Tablet.dr, 40 MG GTB DAILY, TAB 03/29/19 Levetiracetam* (Keppra* (Ped)) 100 Mg/Ml Liq, 5 ML GTB BID for 30 Days, BOTTLE 03/29/19 Levothyroxine Sodium* (Synthroid*) 75 Mcg Tablet, 75 MCG GTB BEFORE BREAKFAST, #30 TAB 03/29/19 Prednisone* (Prednisone*) 5 Mg Tab, 5 MG GTB DAILY, TAB 03/29/19 Hydroxychloroquine Sulfate* (Plaquenil*) 200 Mg Tab, 200 MG GTB BID, TAB 03/29/19 Folic Acid* (Folic Acid*) 1 Mg Tablet, 1 MG GTB DAILY, TAB 03/29/19 Doxazosin Mesylate* (Doxazosin Mesylate*) 2 Mg Tablet, 2 MG GTB HS, TAB HOLD IF SBP<110 03/29/19 Calcium Carbonate (Oysco-500) 500 Mg Tablet, 500 MG GTB BID, TAB 03/29/19 L. Acidophilus/Pectin, [place] (Acidophilus Capsule) 1 Each Capsule, 1 EACH GTB DAILY, CAP 03/29/19 Insulin Regular, Human (Humulin R) 100 Unit/1 Ml Vial, 0 IJ SLIDING SCALE, VIAL IF BS 70-150=0 UNIT,151-200=2 UNITS,201-250=4 UNITS,251-300=6 UNITS, 301-350=8 UNITS, 351-400=10 UNITS,>400=12 UNITS. NOTIFY MD IF BS >400 OR<60. 03/29/19 Insulin Detemir (Levemir Flextouch) 100 Unit/1 Ml Insuln.pen, 5 UNIT SQ QHS, EA 03/29/19 Acetaminophen* (Acetaminophen*) 500 MG Extra Strength Tablet, 1000 MG GTB Q4H PRN for PAIN LEVEL 4-6, TAB 03/29/19 Acetaminophen* (Tylenol*) 325 Mg Tablet, 650 MG GTB NEEDED PRN for TRACH TUBE CHANGE, TAB 03/29/19 Acetaminophen* (Tylenol*) 325 Mg Tablet, 650 MG GTB Q4H PRN for MILD PAIN LEVEL 1-3, TAB AND FEVER 03/29/19 Acetaminophen* (Tylenol*) 325 Mg Tablet, 650 MG GTB BID PRN for PAIN AND OR ELEVATED TEMP, TAB 03/29/19 Zinc Sulfate* (Zinc Sulfate*) 220 Mg Tablet, 220 MG GTB DAILY, TAB 03/29/19 Ascorbic Acid (Vitamin C) 500 Mg Tab, 500 MG GTB DAILY, TAB 03/29/19 Multivitamin with Minerals (Multivitamins with Minerals) 1 Each Tablet, 1 EACH GTB DAILY, TAB 03/29/19 Amino Acids/Protein Hydrolys (PRO-STAT LIQUID) 30 Ml Liquid.pkt, 30 ML GTB DAILY SUGAR FREE 03/29/19 Mineral Oil* (Fleet* Mineral Oil Enema) Unknown Strength Oil, 1 APPLIC [place] Q2D PRN for CONSTIPATION, ENEMA 03/29/19 Bisacodyl (Dulcolax) 10 Mg Supp.rect, 10 MG RC DAILY, SUPP.RECT 03/29/19 Magnesium Hydroxide* (Milk Of Magnesia*) 400 Mg/5 Ml Oral.susp, 30 ML GTB DAILY, ML 03/29/19 Sennosides* (Senna Lax*) 8.6 Mg Tablet, 2 TAB GTB DAILY, TAB 03/29/19 Cran/Vitc/Mannose/Inulin/Brom (Uti-Stat Liquid) 3,875 Mg/30 Ml Liquid, 30 ML GTB BID 03/29/19 Medications Current Medications IV Flush (NS 3 ml) 3 ml PER PROTOCOL IV ; Start 03/29/19 at 16:00 Ondansetron HCl (Zofran Inj) 4 mg Q6H PRN IV NAUSEA/VOMITING Last administered on 03/30/19 14:11; Admin Dose 4 MG; Start 03/29/19 at 16:00 Morphine Sulfate (morphine) 2 mg Q4H PRN IV .SEVERE PAIN 7-10 Last administered on 03/29/19 21:03; Admin Dose 2 MG; Start 03/29/19 at 16:00 Vancomycin HCl (Vanco Iv Per Pharmacy) VANCOMYCIN PER PHARMACY PER PROTOCOL XX ; Start 03/29/19 at 16:00 Amantadine HCl (Symmetrel) 100 mg BID GTB Last administered on 03/30/19 09:59; Admin Dose 100 MG; Start 03/29/19 at 21:00 Ascorbic Acid (Vitamin C) 500 mg DAILY GTB Last administered on 03/30/19 09:59; Admin Dose 500 MG; Start 03/30/19 at 09:00 Calcium Carbonate (Tums) 500 mg BID GTB Last administered on 03/30/19 10:00; Admin Dose 500 MG; Start 03/29/19 at 21:00 Folic Acid (Folic Acid) 1 mg DAILY GTB Last administered on 03/30/19 09:59; Ad min Dose 1 MG; Start 03/30/19 at 09:00 Levetiracetam (Keppra Liq (Ped)) 500 mg BID GTB Last administered on 03/30/19 09:58; Admin Dose 500 MG; Start 03/29/19 at 21:00 Levothyroxine Sodium (Synthroid) 75 mcg BEFORE BREAKFAST GTB Last administered on 03/30/19 06:18; Admin Dose 75 MCG; Start 03/30/19 at 07:00 Magnesium Hydroxide (Milk Of Mag) 30 ml DAILY GTB Last administered on 03/30/19 09:58; Admin Dose 30 ML; Start 03/30/19 at 09:00 Senna (Senokot) 2 tab DAILY GTB ; Start 03/30/19 at 09:00 Zinc Sulfate (Zinc Sulfate) 220 mg DAILY GTB Last administered on 03/30/19at 10:00; Admin Dose 220 MG; Start 03/30/19 at 09:00 Miscellaneous Information 1 ea NOTE XX ; Start 03/29/19 at 17:00 Glucose (Glutose) 15 gm Q15M PRN PO DECREASED GLUCOSE; Start 03/29/19 at 17:00 Glucose (Glutose) 22.5 gm Q15M PRN PO DECREASED GLUCOSE; Start 03/29/19 at 17:00 Dextrose (D50w Syringe) 25 ml Q15M PRN IV DECREASED GLUCOSE; Start 03/29/19 at 17:00 Dextrose (D50w Syringe) 50 ml Q15M PRN IV DECREASED GLUCOSE; Start 03/29/19 at 17:00 Glucagon (Glucagen) 1 mg Q15M PRN IM DECREASED GLUCOSE; Start 03/29/19 at 17:00 Glucose (Glutose) 15 gm Q15M PRN BUCCAL DECREASED GLUCOSE; Start 03/29/19 at 17:00 Labetalol HCl (Labetalol) 20 mg Q4 PRN IV sbp >170 Last administered on 03/29/19at 17:55; Admin Dose 20 MG; Start 03/29/19 at 18:00 Insulin Glargine (Lantus) 5 units QHS SC ; Start 03/29/19 at 21:00 Diagnostic Test (Pha) (Accu-Chek) 1 ea Q4 XX Last administered on 03/30/19at 05:02; Admin Dose 1 EA; Start 03/30/19 at 01:00 Dextrose/Sodium Chloride 1,000 ml @ 75 mls/hr [id number] IV Last administered on 03/30/19at 11:50; Admin Dose 75 MLS/HR; Start 03/29/19 at 21:30 Phenylephrine HCl 80 mg/Dextrose 250 ml @ 18.75 mls/ hr TITRATE IV Last administered on 03/30/19at 10:10; Admin Dose 26.25 MLS/HR; Start 03/30/19 at 01:00 Piperacillin Sod/ Tazobactam Sod 50 ml @ 100 mls/hr Q8 IVPB Last administered on 03/30/19at 14:20; Admin Dose 100 MLS/HR; Start 03/30/19 at 14:00 Miscellaneous Information (*Rx Drug Level Order Reminder*) 1 0500 ONCE XX ; Start 03/31/19 at 05:00; Stop 03/31/19 at 05:01 Fentanyl 100 ml @ 5 mls/hr TITRATE IV ; Start 03/30/19 at 15:00 Allergies: Coded Allergies: No Known Allergy (Unverified , 03/29/19) Past Surgical History Past Surgical Hx: other (trach and peg ) Social History Alcohol Use: none Smoking Status: Never smoker Drug Use: none Exam/Review of Systems Exam Vitals Vital Signs Date Temp Pulse Resp B/P (MAP) Pulse Ox O2 O2 Flow FiO2 Time Delivery Rate 03/30/19 83 12:00 03/30/19 23 100 40 11:03/30/19 95/60 (72) 10:45 03/30/19 100.1 [employer] 08:00 l Ventilato r Intake and Output 03/29/19 03/29/19 03/30/19 1515:00 23:00 07:00 IntakeIntake Total 397 ml 1882.74 ml OutputOutput Total 29 ml 45 ml BalanceBalance 368 ml 1837.74 ml Constitutional: non-verbal Head: normocephalic, atraumatic Eyes: nl conjunctiva ENMT: nl external ears & nose, mucosa pink and moist Neck: supple, non-tender Respiratory: diminished breath sounds Cardiovascular: regular rate and rhythm Gastrointestinal: soft Extremities: edema, pitting pedal edema Neurological: DTR's symmetric, lethargic, unresponsive Results Result Diagram: 03/30/19 0437 03/30/19 0437 Results 24hrs Laboratory Tests Test 03/29/19 17:35 03/29/19 21:08 03/30/19 01:29 03/30/19 04:37 Lactic Acid Level 10.5 *H Bedside Glucose 72 88 White Blood Count 13.6 H Red Blood Count 2.69 L Hemoglobin 8.0 L Hematocrit 26.6 L Mean Corpuscular 98.9 Volume Mean Corpuscular 29.7 Hemoglobin Mean Corpuscular 30.1 L Hemoglobin Concent Red Cell 17.2 H Distribution Width Platelet Count 316 Mean Platelet Volume 10.4 Immature 1.300 H Granulocytes % Neutrophils % Segmented 16 L Neutrophils % (Manual) Band Neutrophils % 46 H (Manual) Lymphocytes % Lymphocytes % 21 (Manual) Reactive Lymphocytes 1 H % (Manual) Monocytes % Monocytes % (Manual) 1 Eosinophils % Basophils % Basophils % (Manual) 1 Metamyelocytes % 8 H (manual) Myelocytes % 6 H (Manual) Nucleated Red Blood 0.0 Cells % Immature 0.180 H Granulocytes # Neutrophils # Neutrophils # 3.0 (Manual) Band Neutrophils # 6.2 H Lymphocytes (Manual) 2.8 Lymphocytes # Reactive Lymphocytes 0.1 H # Monocytes # Monocytes # (Manual) 0.1 L Eosinophils # Basophils # Basophils # (Manual) 0.1 H Metamyelocytes # 1.0 H Myelocytes # 0.8 H Nucleated Red Blood Cells # Toxic Granulation 2+ Platelet Estimate NORMAL Poikilocytosis 2+ Anisocytosis 1+ Microcytosis 1+ Sodium Level 148 H Potassium Level 4.8 Chloride Level 114 H Carbon Dioxide Level 17 L Anion Gap 17 H Blood Urea Nitrogen 77 H Creatinine 3.92 H Est Glomerular 12 L Filtrat Rate mL/min Glucose Level 98 Hemoglobin A1c 5.9 Calcium Level 10.0 Phosphorus Level 4.8 Magnesium Level 2.1 Test 03/30/19 05:01 03/30/19 09:56 03/30/19 13:45 Bedside Glucose 117 76 70 Medications Medication Current Medications IV Flush (NS 3 ml) 3 ml PER PROTOCOL IV ; Start 03/29/19 at 16:00 Ondansetron HCl (Zofran Inj) 4 mg Q6H PRN IV NAUSEA/VOMITING Last administered on 03/30/19at 14:11; Admin Dose 4 MG; Start 03/29/19 at 16:00 Morphine Sulfate (morphine) 2 mg Q4H PRN IV .SEVERE PAIN 7-10 Last administered on 03/29/19at 21:03; Admin Dose 2 MG; Start 03/29/19 at 16:00 Vancomycin HCl (Vanco Iv Per Pharmacy) VANCOMYCIN PER PHARMACY PER PROTOCOL XX ; Start 03/29/19 at 16:00 Amantadine HCl (Symmetrel) 100 mg BID GTB Last administered on 03/30/19at 09:59; Admin Dose 100 MG; Start 03/29/19 at 21:00 Ascorbic Acid (Vitamin C) 500 mg DAILY GTB Last administered on 03/30/19at 09:59; Admin Dose 500 MG; Start 03/30/19 at 09:00 Calcium Carbonate (Tums) 500 mg BID GTB Last administered on 03/30/19at 10:00; Admin Dose 500 MG; Start 03/29/19 at 21:00 Folic Acid (Folic Acid) 1 mg DAILY GTB Last administered on 03/30/19at 09:59; Admin Dose 1 MG; Start 03/30/19 at 09:00 Levetiracetam (Keppra Liq (Ped)) 500 mg BID GTB Last administered on 03/30/19at 09:58; Admin Dose 500 MG; Start 03/29/19 at 21:00 Levothyroxine Sodium (Synthroid) 75 mcg BEFORE BREAKFAST GTB Last administered on 03/30/19at 06:18; Admin Dose 75 MCG; Start 03/30/19 at 07:00 Magnesium Hydroxide (Milk Of Mag) 30 ml DAILY GTB Last administered on 03/30/19at 09:58; Admin Dose 30 ML; Start 03/30/19 at 09:00 Senna (Senokot) 2 tab DAILY GTB ; Start 03/30/19 at 09:00 Zinc Sulfate (Zinc Sulfate) 220 mg DAILY GTB Last administered on 03/30/19at 10:00; Admin Dose 220 MG; Start 03/30/19 at 09:00 Miscellaneous Information 1 ea NOTE XX ; Start 03/29/19 at 17:00 Glucose (Glutose) 15 gm Q15M PRN PO DECREASED GLUCOSE; Start 03/29/19 at 17:00 Glucose (Glutose) 22.5 gm Q15M PRN PO DECREASED GLUCOSE; Start 03/29/19 at 17:00 Dextrose (D50w Syringe) 25 ml Q15M PRN IV DECREASED GLUCOSE; Start 03/29/19 at 17:00 Dextrose (D50w Syringe) 50 ml Q15M PRN IV DECREASED GLUCOSE; Start 03/29/19 at 17:00 Glucagon (Glucagen) 1 mg Q15M PRN IM DECREASED GLUCOSE; Start 03/29/19 at 17:00 Glucose (Glutose) 15 gm Q15M PRN BUCCAL DECREASED GLUCOSE; Start 03/29/19 at 17:00 Labetalol HCl (Labetalol) 20 mg Q4 PRN IV sbp >170 Last administered on 03/29/19at 17:55; Admin Dose 20 MG; Start 03/29/19 at 18:00 Insulin Glargine (Lantus) 5 units QHS SC ; Start 03/29/19 at 21:00 Diagnostic Test (Pha) (Accu-Chek) 1 ea Q4 XX Last administered on 03/30/19at 05:02; Admin Dose 1 EA; Start 03/30/19 at 01:00 Dextrose/Sodium Chloride 1,000 ml @ 75 mls/hr [id number] IV Last administered on 03/30/19at 11:50; Admin Dose 75 MLS/HR; Start 03/29/19 at 21:30 Phenylephrine HCl 80 mg/Dextrose 250 ml @ 18.75 mls/ hr TITRATE IV Last administered on 03/30/19at 10:10; Admin Dose 26.25 MLS/HR; Start 03/30/19 at 01:00 Piperacillin Sod/ Tazobactam Sod 50 ml @ 100 mls/hr Q8 IVPB Last administered on 03/30/19at 14:20; Admin Dose 100 MLS/HR; Start 03/30/19 at 14:00 Miscellaneous Information (*Rx Drug Level Order Reminder*) 1 0500 ONCE XX ; Start 03/31/19 at 05:00; Stop 03/31/19 at 05:01 Fentanyl 100 ml @ 5 mls/hr TITRATE IV ; Start 03/30/19 at 15:00 ARLYN GARCIA MD March 30, 2019 15:03
--- NOTE | 2019-03-30 15:04 | PRO ---
Date/Time of Note Date/Time of Note DATE: 03/30/19 TIME: 15:03 Femoral CV Placement PROCEDURE NOTE PROCEDURE: Femoral central venous catheter INDICATION: Need for intravenous access due to septic shock PROCEDURE INVENTORY CONTROL CLERK: [email or web address] CONSENT: Obtained from son. PROCEDURE SUMMARY: The patient was prepped and draped in the usual sterile manner. 1% lidocaine was used to numb the region. The finder needle was used to locate the right femoral vein. A triple lumen 8 Thai 20 cm catheter was inserted using the Seldinger technique. All ports aspirate and flushed without difficulty. The patient tolerated the procedure well without any immediate complications. The line was sutured into place and the area was cleaned and Tegaderm applied. ESTIMATED BLOOD LOSS: 2 ml ARLYN GARCIA MD March 30, 2019 15:04
[2019-03-30] MEDS: FENTAnyl (DRIP) 1000 mcg/100mL 100 ML IV SCH ×2 (15:11→22:35)
[2019-03-30] MEDS: DEXTROSE 5%-0.9% NACL 1,000 ML IV SCH (15:17)
[2019-03-30] MEDS ORDERED: LACTATED RINGER'S 1,000 ML IV ONE (15:30)
--- NOTE | 2019-03-30 16:59 | PN ---
Date/Time of Note Date/Time of Note DATE: 03/30/19 TIME: 16:55 Assessment/Plan VTE Prophylaxis Risk score (from [facility] [place])>0 risk: 4 SCD applied (from [facility]): Yes Pharmacological prophylaxis: NA/contraindicated Pharm contraindication: bleeding Assessment/Plan Hospital Course 1. Septic shock secondary to HCAP and/or aspiration pneumonia Patient with fevers and leukocytosis Urine culture is growing gram-negative rods, 1/2 blood culture growing likely staph Broad-spectrum antibiotics with vancomycin and Zosyn ID consultation appreciated Pressors as needed 2. Chronic encephalopathy and respiratory failure secondary to history of ruptured aneurysm 4 months ago Patient resides in a subacute facility Continue vent support Pulmonology consultation 3. Acute kidney injury versus CKD-improving Etiology likely secondary to shock Baseline creatinine unknown IV fluids and monitor Nephrology consultation obtained Renal ultrasound shows no significant findings 4. Diabetes Schedule insulin and sliding scale 5. History of hypertension Hold home meds secondary to sepsis Prophylaxis: SCDs Result Diagram: 03/30/19 0437 03/30/19 0437 Results 24hrs Laboratory Tests Test 03/29/19 17:35 03/29/19 21:08 03/30/19 01:29 03/30/19 04:37 Lactic Acid Level 10.5 *H Bedside Glucose 72 88 White Blood Count 13.6 H Red Blood Count 2.69 L Hemoglobin 8.0 L Hematocrit 26.6 L Mean Corpuscular 98.9 Volume Mean Corpuscular 29.7 Hemoglobin Mean Corpuscular 30.1 L Hemoglobin Concent Red Cell 17.2 H Distribution Width Platelet Count 316 Mean Platelet Volume 10.4 Immature 1.300 H Granulocytes % Neutrophils % Segmented 16 L Neutrophils % (Manual) Band Neutrophils % 46 H (Manual) Lymphocytes % Lymphocytes % 21 (Manual) Reactive Lymphocytes 1 H % (Manual) Monocytes % Monocytes % (Manual) 1 Eosinophils % Basophils % Basophils % (Manual) 1 Metamyelocytes % 8 H (manual) Myelocytes % 6 H (Manual) Nucleated Red Blood 0.0 Cells % Immature 0.180 H Granulocytes # Neutrophils # Neutrophils # 3.0 (Manual) Band Neutrophils # 6.2 H Lymphocytes (Manual) 2.8 Lymphocytes # Reactive Lymphocytes 0.1 H # Monocytes # Monocytes # (Manual) 0.1 L Eosinophils # Basophils # Basophils # (Manual) 0.1 H Metamyelocytes # 1.0 H Myelocytes # 0.8 H Nucleated Red Blood Cells # Toxic Granulation 2+ Platelet Estimate NORMAL Poikilocytosis 2+ Anisocytosis 1+ Microcytosis 1+ Sodium Level 148 H Potassium Level 4.8 Chloride Level 114 H Carbon Dioxide Level 17 L Anion Gap 17 H Blood Urea Nitrogen 77 H Creatinine 3.92 H Est Glomerular 12 L Filtrat Rate mL/min Glucose Level 98 Hemoglobin A1c 5.9 Calcium Level 10.0 Phosphorus Level 4.8 Magnesium Level 2.1 Test 03/30/19 05:01 03/30/19 09:56 03/30/19 13:45 Bedside Glucose 117 76 70 Subjective 24 Hr Interval Summary Subjective hx not possible: pt non-verbal Exam/Review of Systems Exam Vitals Vital Signs Date Temp Pulse Resp B/P (MAP) Pulse Ox O2 O2 Flow FiO2 Time Delivery Rate 03/30/19 79 24 88/61 (70) 99 16:15 03/30/19 99.5 Mechanical 16:00 Ventilator 03/30/19 40 11:19 Intake and Output 03/29/19 03/29/19 03/30/19 1515:00 23:00 07:00 IntakeIntake Total 397 ml 1882.74 ml OutputOutput Total 29 ml 50 ml BalanceBalance 368 ml 1832.74 ml Constitutional: non-verbal Respiratory: clear to auscultation Cardiovascular: regular rate and rhythm Gastrointestinal: soft; No distended Musculoskeletal: nl extremities to inspection Results Results 24hrs Laboratory Tests Test 03/29/19 17:35 03/29/19 21:08 03/30/19 01:29 03/30/19 04:37 Lactic Acid Level 10.5 *H Bedside Glucose 72 88 White Blood Count 13.6 H Red Blood Count 2.69 L Hemoglobin 8.0 L Hematocrit 26.6 L Mean Corpuscular 98.9 Volume Mean Corpuscular 29.7 Hemoglobin Mean Corpuscular 30.1 L Hemoglobin Concent Red Cell 17.2 H Distribution Width Platelet Count 316 Mean Platelet Volume 10.4 Immature 1.300 H Granulocytes % Neutrophils % Segmented 16 L Neutrophils % (Manual) Band Neutrophils % 46 H (Manual) Lymphocytes % Lymphocytes % 21 (Manual) Reactive Lymphocytes 1 H % (Manual) Monocytes % Monocytes % (Manual) 1 Eosinophils % Basophils % Basophils % (Manual) 1 Metamyelocytes % 8 H (manual) Myelocytes % 6 H (Manual) Nucleated Red Blood 0.0 Cells % Immature 0.180 H Granulocytes # Neutrophils # Neutrophils # 3.0 (Manual) Band Neutrophils # 6.2 H Lymphocytes (Manual) 2.8 Lymphocytes # Reactive Lymphocytes 0.1 H # Monocytes # Monocytes # (Manual) 0.1 L Eosinophils # Basophils # Basophils # (Manual) 0.1 H Metamyelocytes # 1.0 H Myelocytes # 0.8 H Nucleated Red Blood Cells # Toxic Granulation 2+ Platelet Estimate NORMAL Poikilocytosis 2+ Anisocytosis 1+ Microcytosis 1+ Sodium Level 148 H Potassium Level 4.8 Chloride Level 114 H Carbon Dioxide Level 17 L Anion Gap 17 H Blood Urea Nitrogen 77 H Creatinine 3.92 H Est Glomerular 12 L Filtrat Rate mL/min Glucose Level 98 Hemoglobin A1c 5.9 Calcium Level 10.0 Phosphorus Level 4.8 Magnesium Level 2.1 Test 03/30/19 05:01 03/30/19 09:56 03/30/19 13:45 Bedside Glucose 117 76 70 Medications Medication Current Medications IV Flush (NS 3 ml) 3 ml PER PROTOCOL IV ; Start 03/29/19 at 16:00 Ondansetron HCl (Zofran Inj) 4 mg Q6H PRN IV NAUSEA/VOMITING Last administered on 03/30/19at 14:11; Admin Dose 4 MG; Start 03/29/19 at 16:00 Morphine Sulfate (morphine) 2 mg Q4H PRN IV .SEVERE PAIN 7-10 Last administered on 03/29/19at 21:03; Admin Dose 2 MG; Start 03/29/19 at 16:00 Vancomycin HCl (Vanco Iv Per Pharmacy) VANCOMYCIN PER PHARMACY PER PROTOCOL XX ; Start 03/29/19 at 16:00 Amantadine HCl (Symmetrel) 100 mg BID GTB Last administered on 03/30/19 09:59; Admin Dose 100 MG; Start 03/29/19 at 21:00 Ascorbic Acid (Vitamin C) 500 mg DAILY GTB Last administered on 03/30/19 09:59; Admin Dose 500 MG; Start 03/30/19 at 09:00 Calcium Carbonate (Tums) 500 mg BID GTB Last administered on 03/30/19 10:00; Admin Dose 500 MG; Start 03/29/19 at 21:00 Folic Acid (Folic Acid) 1 mg DAILY GTB Last administered on 03/30/19 09:59; Admin Dose 1 MG; Start 03/30/19 at 09:00 Levetiracetam (Keppra Liq (Ped)) 500 mg BID GTB Last administered on 03/30/19at 09:58; Admin Dose 500 MG; Start 03/29/19 at 21:00 Levothyroxine Sodium (Synthroid) 75 mcg BEFORE BREAKFAST GTB Last administered on 03/30/19at 06:18; Admin Dose 75 MCG; Start 03/30/19 at 07:00 Magnesium Hydroxide (Milk Of Mag) 30 ml DAILY GTB Last administered on 03/30/19at 09:58; Admin Dose 30 ML; Start 03/30/19 at 09:00 Senna (Senokot) 2 tab DAILY GTB ; Start 03/30/19 at 09:00 Zinc Sulfate (Zinc Sulfate) 220 mg DAILY GTB Last administered on 03/30/19at 10:00; Admin Dose 220 MG; Start 03/30/19 at 09:00 Miscellaneous Information 1 ea NOTE XX ; Start 03/29/19 at 17:00 Glucose (Glutose) 15 gm Q15M PRN PO DECREASED GLUCOSE; Start 03/29/19 at 17:00 Glucose (Glutose) 22.5 gm Q15M PRN PO DECREASED GLUCOSE; Start 03/29/19 at 17:00 Dextrose (D50w Syringe) 25 ml Q15M PRN IV DECREASED GLUCOSE; Start 03/29/19 at 17:00 Dextrose (D50w Syringe) 50 ml Q15M PRN IV DECREASED GLUCOSE; Start 03/29/19 at 17:00 Glucagon (Glucagen) 1 mg Q15M PRN IM DECREASED GLUCOSE; Start 03/29/19 at 17:00 Glucose (Glutose) 15 gm Q15M PRN BUCCAL DECREASED GLUCOSE; Start 03/29/19 at 17:00 Labetalol HCl (Labetalol) 20 mg Q4 PRN IV sbp >170 Last administered on 03/29/19at 17:55; Admin Dose 20 MG; Start 03/29/19 at 18:00 Insulin Glargine (Lantus) 5 units QHS SC ; Start 03/29/19 at 21:00 Diagnostic Test (Pha) (Accu-Chek) 1 ea Q4 XX Last administered on 03/30/19at 05:02; Admin Dose 1 EA; Start 03/30/19 at 01:00 Phenylephrine HCl 80 mg/Dextrose 250 ml @ 18.75 mls/ hr TITRATE IV Last administered on 03/30/19at 15:12; Admin Dose 28.13 MLS/HR; Start 03/30/19 at 01:00 Piperacillin Sod/ Tazobactam Sod 50 ml @ 100 mls/hr Q8 IVPB Last administered on 03/30/19at 14:20; Admin Dose 100 MLS/HR; Start 03/30/19 at 14:00 Miscellaneous Information (*Rx Drug Level Order Reminder*) 1 0500 ONCE XX ; Start 03/31/19 at 05:00; Stop 03/31/19 at 05:01 Fentanyl 100 ml @ 5 mls/hr TITRATE IV Last administered on 03/30/19at 15:11; Admin Dose 5 MLS/HR; Start 03/30/19 at 15:00 Dextrose/Sodium Chloride 1,000 ml @ 100 mls/hr Q10H IV Last administered on 03/30/19at 15:17; Admin Dose 100 MLS/HR; Start 03/30/19 at 15:30 LIBRA MARTINEZ March 30, 2019 16:59
[2019-03-30] MEDS: BALSAM PERU/CASTOR OIL 60 GM TUBE TOP SCH (20:58)
[2019-03-30] MEDS: INSULIN GLARGINE [LANTus] (100 UNITS/ML) SYG SC SCH (21:06)
[2019-03-31] VITALS (102 sets, daily range): BP systolic 51–117; BP diastolic 31–107; PULSE 68–77; RESP 12–36
[2019-03-31] MEDS: ACCU-CHEK XX SCH ×6 (01:54→20:19)
[2019-03-31] MEDS: DEXTROSE 5%-0.9% NACL 1,000 ML IV SCH ×4 (01:55→23:59)
[2019-03-31] MEDS: PIPER-TAZO 2.25 GM/NS 50 ML IVPB SCH ×3 (05:04→21:11)
[2019-03-31] MEDS: LEVOTHYROXINE 75 MCG TAB GTB SCH (06:04)
[2019-03-31] MEDS: ASCORBIC ACID 500 MG TAB GTB SCH (08:48)
[2019-03-31] MEDS: LEVETIRACETAM (100 MG/ML PO SYG) GTB SCH ×2 (08:48→20:19)
[2019-03-31] MEDS: ZINC SULFATE 220 MG CAP GTB SCH (08:48)
[2019-03-31] MEDS: AMANTADINE 100 MG/10 ML POSYR GTB SCH ×2 (08:48→20:19)
[2019-03-31] MEDS: FOLIC ACID 1 MG TAB GTB SCH (08:48)
[2019-03-31] MEDS: CALCIUM CARBONATE 500 MG CHEW TAB GTB SCH ×2 (08:48→20:20)
[2019-03-31] MEDS: SENNA TAB GTB SCH (09:00)
[2019-03-31] MEDS: MAGNESIUM HYDROXIDE 30ML CUP GTB SCH (09:00)
[2019-03-31] MEDS: BALSAM PERU/CASTOR OIL 60 GM TUBE TOP SCH ×2 (09:02→20:21)
[2019-03-31] MEDS: PHENYLephrine 80 MG in DEXTROSE 5% 242 ML IV SCH ×2 (09:05→18:08)
--- NOTE | 2019-03-31 11:17 | CONS ---
Assessment/Plan Assessment/Plan Hospital Course (Demo Recall) 1. oliguric FE likely due to renal hypoperfusion leading to ATN. unclear if there is a chronic component. - renal function improving with IVF - check urine Na, cr and eosinophils. Check UA - JUAN LUIS was reviewed without evidence of obstruction - will give 1L of NS over 2 hours and then continue current IVF and pressors - medications renally dosed 2. anion gap and nongap metabolic acidosis: with respiratory compensation - due to lactic acidosis and FE - no HCO3 replacement needed - monitor HCO3 and ABG 3. septic shock: - possibly due to HCAP or aspiration PNA - cont abx, and IVF. titrate down pressors as tolerated - f/u cx 4. anemia: - will check iron studies - may need a dose of epogen if iron is replete 5. Bone Mineral Disease: - monitor ca and phos 6. Dm: - cont lantus and ssi 7. acute on chronic respiratory failure: - cont abx as above - vent management per pulm 8. chronic encephalopathy: - monitor Thank you for the consult, we will continue to follow the patient closely with you. Consultation Date/Type/Reason Admit Date/Time March 29, 2019 at 14:37 Type of Consult nephrology Reason for Consultation fe Date/Time of Note DATE: 03/31/19 TIME: 11:07 Hx of Present Illness Patient is a 58-year-old female with a history of diabetes, hypertension and brain aneurysm rupture approximately 4 months ago with chronic encephalopathy and respiratory failure, patient resides in a subacute [facility] rehab. Patient does have history of recent pneumonia status post antibiotic course. Patient had a chest x-ray at the facility which showed pneumonia and was transferred to the ER. In the ER labs significant for leukocytosis, and chest x-ray showed bi lateral pneumonia. Pt was started on empiric abx, IVF, pressors and admitted to the ICU. Cr on admission was 4.8 and has been improving with IVF and pressors. Her urine output has been minimal 5-10cc/hr with estevez catheter. She is currently on phenylephrine for pressors. ROS Subjective hx not possible: pt non-verbal PMH/Family/Social PMH/Family/Social Past Medical History As per HPI Coded Allergies: No Known Allergy (Unverified , 03/29/19) Family History Significant Family History: no pertinent family hx Social History Alcohol Use: none Smoking Status: Never smoker Drug Use: none Past Medical History Medical History: urinary tract infection Home Meds Reported Medications Amantadine Hcl* (Amantadine Hcl*) 50 Mg/5 Ml Syrup, 10 ML GTB BID, #300 ML 03/29/19 Pantoprazole* (Protonix*) 40 Mg Tablet.dr, 40 MG GTB DAILY, TAB 03/29/19 Levetiracetam* (Keppra* (Ped)) 100 Mg/Ml Liq, 5 ML GTB BID for 30 Days, BOTTLE 03/29/19 Levothyroxine Sodium* (Synthroid*) 75 Mcg Tablet, 75 MCG GTB BEFORE BREAKFAST, #30 TAB 03/29/19 Prednisone* (Prednisone*) 5 Mg Tab, 5 MG GTB DAILY, TAB 03/29/19 Hydroxychloroquine Sulfate* (Plaquenil*) 200 Mg Tab, 200 MG GTB BID, TAB 03/29/19 Folic Acid* (Folic Acid*) 1 Mg Tablet, 1 MG GTB DAILY, TAB 03/29/19 Doxazosin Mesylate* (Doxazosin Mesylate*) 2 Mg Tablet, 2 MG GTB HS, TAB HOLD IF SBP<110 03/29/19 Calcium Carbonate ([place]-500) 500 Mg Tablet, 500 MG GTB BID, TAB 03/29/19 L. Acidophilus/Pectin, [place] (Acidophilus Capsule) 1 Each Capsule, 1 EACH GTB DAILY, CAP 03/29/19 Insulin Regular, Human (Humulin R) 100 Unit/1 Ml Vial, 0 IJ SLIDING SCALE, VIAL IF BS 70-150=0 UNIT,151-200=2 UNITS,201-250=4 UNITS,251-300=6 UNITS, 301-350=8 UNITS, 351-400=10 UNITS,>400=12 UNITS. NOTIFY MD IF BS >400 OR<60. 03/29/19 Insulin Detemir (Levemir Flextouch) 100 Unit/1 Ml Insuln.pen, 5 UNIT SQ QHS, EA 03/29/19 Acetaminophen* (Acetaminophen*) 500 MG Extra Strength Tablet, 1000 MG GTB Q4H PRN for PAIN LEVEL 4-6/10, TAB 03/29/19 Acetaminophen* (Tylenol*) 325 Mg Tablet, 650 MG GTB NEEDED PRN for TRACH TUBE CHANGE, TAB 03/29/19 Acetaminophen* (Tylenol*) 325 Mg Tablet, 650 MG GTB Q4H PRN for MILD PAIN LEVEL 1-3, TAB AND FEVER 03/29/19 Acetaminophen* (Tylenol*) 325 Mg Tablet, 650 MG GTB BID PRN for PAIN AND OR ELEVATED TEMP, TAB 03/29/19 Zinc Sulfate* (Zinc Sulfate*) 220 Mg Tablet, 220 MG GTB DAILY, TAB 03/29/19 Ascorbic Acid (Vitamin C) 500 Mg Tab, 500 MG GTB DAILY, TAB 03/29/19 Multivitamin with Minerals (Multivitamins with Minerals) 1 Each Tablet, 1 EACH GTB DAILY, TAB 03/29/19 Amino Acids/Protein Hydrolys (PRO-STAT LIQUID) 30 Ml Liquid.pkt, 30 ML GTB DAILY SUGAR FREE 03/29/19 Mineral Oil* (Fleet* Mineral Oil Enema) Unknown Strength Oil, 1 APPLIC [place] Q2D PRN for CONSTIPATION, ENEMA 03/29/19 Bisacodyl (Dulcolax) 10 Mg Supp.rect, 10 MG RC DAILY, SUPP.RECT 03/29/19 Magnesium Hydroxide* (Milk Of Magnesia*) 400 Mg/5 Ml Oral.susp, 30 ML GTB DAILY, ML 03/29/19 Sennosides* (Senna Lax*) 8.6 Mg Tablet, 2 TAB GTB DAILY, TAB 03/29/19 Cran/Vitc/Mannose/Inulin/Brom (Uti-Stat Liquid) 3,875 Mg/30 Ml Liquid, 30 ML GTB BID 03/29/19 Medications Current Medications IV Flush (NS 3 ml) 3 ml PER PROTOCOL IV ; Start 03/29/19 at 16:00 Ondansetron HCl (Zofran Inj) 4 mg Q6H PRN IV NAUSEA/VOMITING Last administered on 03/30/19at 14:11; Admin Dose 4 MG; Start 03/29/19 at 16:00 Morphine Sulfate (morphine) 2 mg Q4H PRN IV .SEVERE PAIN 7-10 Last administered on 03/29/19at 21:03; Admin Dose 2 MG; Start 03/29/19 at 16:00 Vancomycin HCl (Vanco Iv Per Pharmacy) VANCOMYCIN PER PHARMACY PER PROTOCOL XX ; Start 03/29/19 at 16:00 Amantadine HCl (Symmetrel) 100 mg BID GTB Last administered on 03/31/19 08:48; Admin Dose 100 MG; Start 03/29/19 at 21:00 Ascorbic Acid (Vitamin C) 500 mg DAILY GTB Last administered on 03/31/19 08:48; Admin Dose 500 MG; Start 03/30/19 at 09:00 Calcium Carbonate (Tums) 500 mg BID GTB Last administered on 03/31/19 08:48; Admin Dose 500 MG; Start 03/29/19 at 21:00 Folic Acid (Folic Acid) 1 mg DAILY GTB Last administered on 03/31/19 08:48; Admin Dose 1 MG; Start 03/30/19 at 09:00 Levetiracetam (Keppra Liq (Ped)) 500 mg BID GTB Last administered on 03/31/19 08:48; Admin Dose 500 MG; Start 03/29/19 at 21:00 Levothyroxine Sodium (Synthroid) 75 mcg BEFORE BREAKFAST GTB Last administered on 03/31/19 06:04; Admin Dose 75 MCG; Start 03/30/19 at 07:00 Magnesium Hydroxide (Milk Of Mag) 30 ml DAILY GTB Last administered on 03/30/19 09:58; Admin Dose 30 ML; Start 03/30/19 at 09:00 Senna (Senokot) 2 tab DAILY GTB ; Start 03/30/19 at 09:00 Zinc Sulfate (Zinc Sulfate) 220 mg DAILY GTB Last administered on 03/31/19 08:48; Admin Dose 220 MG; Start 03/30/19 at 09:00 Miscellaneous Information 1 ea NOTE XX ; Start 03/29/19 at 17:00 Glucose (Glutose) 15 gm Q15M PRN PO DECREASED GLUCOSE; Start 03/29/19 at 17:00 Glucose (Glutose) 22.5 gm Q15M PRN PO DECREASED GLUCOSE; Start 03/29/19 at 17:00 Dextrose (D50w Syringe) 25 ml Q15M PRN IV DECREASED GLUCOSE; Start 03/29/19 at 17:00 Dextrose (D50w Syringe) 50 ml Q15M PRN IV DECREASED GLUCOSE; Start 03/29/19 at 17:00 Glucagon (Glucagen) 1 mg Q15M PRN IM DECREASED GLUCOSE; Start 03/29/19 at 17:00 Glucose (Glutose) 15 gm Q15M PRN BUCCAL DECREASED GLUCOSE; Start 03/29/19 at 17:00 Labetalol HCl (Labetalol) 20 mg Q4 PRN IV sbp >170 Last administered on 03/29/19at 17:55; Admin Dose 20 MG; Start 03/29/19 at 18:00 Insulin Glargine (Lantus) 5 units QHS SC Last administered on 03/30/19at 21:06; Admin Dose 5 UNITS; Start 03/29/19 at 21:00 Diagnostic Test (Pha) (Accu-Chek) 1 ea Q4 XX Last administered on 03/31/19 05:04; Admin Dose 1 EA; Start 03/30/19 at 01:00 Phenylephrine HCl 80 mg/Dextrose 250 ml @ 18.75 mls/ hr TITRATE IV Last administered on 03/31/19at 09:05; Admin Dose 28.13 MLS/HR; Start 03/30/19 at 01:00 Piperacillin Sod/ Tazobactam Sod 50 ml @ 100 mls/hr Q8 IVPB Last administered on 03/31/19at 05:04; Admin Dose 100 MLS/HR; Start 03/30/19 at 14:00 Fentanyl 100 ml @ 5 mls/hr TITRATE IV Last administered on 03/30/19at 22:35; Admin Dose 7.5 MLS/HR; Start 03/30/19 at 15:00 Dextrose/Sodium Chloride 1,000 ml @ 100 mls/hr Q10H IV Last administered on 03/31/19at 01:55; Admin Dose 100 MLS/HR; Start 03/30/19 at 15:30 Vancomycin HCl 250 ml @ 125 mls/hr ONCE IVPB ; Start 03/31/19 at 14:00; Stop 03/31/19 at 23:59 Allergies: Coded Allergies: No Known Allergy (Unverified , 03/29/19) Past Surgical History Past Surgical Hx: other (trach and peg ) Social History Alcohol Use: none Smoking Status: Never smoker Drug Use: none Exam/Review of Systems Exam Vitals Vital Signs Date Temp Pulse Resp B/P (MAP) Pulse Ox O2 O2 Flow FiO2 Time Delivery Rate 03/31/19 71 18 99/70 (80) 93 Mechanical 10:00 Ventilator 03/31/19 40 09:45 03/31/19 98.4 08:00 Intake and Output 03/30/19 03/30/19 03/31/19 1515:00 23:00 07:00 IntakeIntake Total 838.13 ml 2277.54 ml 916.91 ml OutputOutput Total 80 ml 525 ml 135 ml BalanceBalance 758.13 ml 1752.54 ml 781.91 ml Exam gen: nonverbal neck: trach cv rrr pulm rhonchi abd soft, nd, nt +bs ext: no edema Results Result Diagram: 03/31/19 0430 03/31/19 0430 Results 24hrs Laboratory Tests Test 03/30/19 13:45 03/30/19 17:10 03/30/19 20:59 03/31/19 01:33 Bedside Glucose 70 79 92 103 Test 03/31/19 04:30 03/31/19 05:00 03/31/19 05:03 03/31/19 09:11 White Blood Count 14.1 H Red Blood Count 2.50 L Hemoglobin 7.4 L Hematocrit 25.2 L Mean Corpuscular 100.8 Volume Mean Corpuscular 29.6 Hemoglobin Mean Corpuscular 29.4 L Hemoglobin Concen t Red Cell 17.1 H Distribution Width Platelet Count 262 Mean Platelet 9.9 Volume Immature 1.900 H Granulocytes % Neutrophils % Segmented 36 L Neutrophils % (Manual) Band Neutrophils 39 H % (Manual) Lymphocytes % Lymphocytes % 11 L (Manual) Monocytes % Monocytes % 4 (Manual) Eosinophils % Eosinophils % 6 (Manual) Basophils % Metamyelocytes % 2 H (manual) Myelocytes % 1 H (Manual) Promyelocytes % 1 H (Manual) Nucleated Red 0.2 H Blood Cells % Immature 0.270 H Granulocytes # Neutrophils # Neutrophils # 5.8 (Manual) Band Neutrophils 5.4 H # Lymphocytes 1.5 (Manual) Lymphocytes # Monocytes # Monocytes # 0.5 (Manual) Eosinophils # Basophils # Metamyelocytes # 0.2 H Myelocytes # 0.1 H Promyelocytes # 0.1 H Nucleated Red Blood Cells # Platelet Estimate NORMAL Giant Platelets 3 H Polychromasia 3+ Poikilocytosis 3+ Sodium Level 145 H Potassium Level 4.0 Chloride Level 115 H Carbon Dioxide 18 L Level Anion Gap 12 Blood Urea 75 H Nitrogen Creatinine 3.68 H Est Glomerular 13 L Filtrat Rate mL/min Glucose Level 90 Lactic Acid Level 4.1 *H Calcium Level 9.2 Random Vancomycin 13.7 Level Blood Gas Blood arterial Specimen Source Arterial Blood 03/31/2019 4:54:1 Date Drawn 1 AM Arterial Blood pH 7.322 L (Temp corrected) Arterial Blood 29.2 L pCO2 (Temp correct) Arterial Blood 73.3 L pO2 (Temp corrected) Arterial Blood 14.8 L HCO3 Arterial Blood -10.2 L Base Excess Arterial Blood 92.7 L Oxygen Saturation Christopher Test ACCEPTAB Arterial Blood Right Radial Gas Puncture Site Arterial 0.3 Blood Carboxyhemo globin Arterial Blood 0.3 Methemoglobin Blood Gas A-a O2 178.3 H Differential Oxyhemoglobin 92.1 L Percent Blood Gas 37.0 Temperature Blood Gas 14.0 Respiration Rate Blood Gas Actual 23 Respiration Rate Blood Gas VENT - AC Modality FiO2 40.0 Blood Gas Tidal 450.0 Volume Blood Gas Low 5.0 PEEP Setting Blood Gas 30.0 Inspiratory Pressure Blood Gas LW Notified Whom Blood Gas 03/31/2019 5:05:0 Notified Time 2 AM Bedside Glucose 98 104 Medications Medication Current Medications IV Flush (NS 3 ml) 3 ml PER PROTOCOL IV ; Start 03/29/19 at 16:00 Ondansetron HCl (Zofran Inj) 4 mg Q6H PRN IV NAUSEA/VOMITING Last administered on 03/30/19at 14:11; Admin Dose 4 MG; Start 03/29/19 at 16:00 Morphine Sulfate (morphine) 2 mg Q4H PRN IV .SEVERE PAIN 7-10 Last administered on 03/29/19at 21:03; Admin Dose 2 MG; Start 03/29/19 at 16:00 Vancomycin HCl (Vanco Iv Per Pharmacy) VANCOMYCIN PER PHARMACY PER PROTOCOL XX ; Start 03/29/19 at 16:00 Amantadine HCl (Symmetrel) 100 mg BID GTB Last administered on 03/31/19 08:48; Admin Dose 100 MG; Start 03/29/19 at 21:00 Ascorbic Acid (Vitamin C) 500 mg DAILY GTB Last administered on 03/31/19at 08:48; Admin Dose 500 MG; Start 03/30/19 at 09:00 Calcium Carbonate (Tums) 500 mg BID GTB Last administered on 03/31/19 08:48; Admin Dose 500 MG; Start 03/29/19 at 21:00 Folic Acid (Folic Acid) 1 mg DAILY GTB Last administered on 03/31/19 08:48; Admin Dose 1 MG; Start 03/30/19 at 09:00 Levetiracetam (Keppra Liq (Ped)) 500 mg BID GTB Last administered on 03/31/19at 08:48; Admin Dose 500 MG; Start 03/29/19 at 21:00 Levothyroxine Sodium (Synthroid) 75 mcg BEFORE BREAKFAST GTB Last administered on 03/31/19at 06:04; Admin Dose 75 MCG; Start 03/30/19 at 07:00 Magnesium Hydroxide (Milk Of Mag) 30 ml DAILY GTB Last administered on 03/30/19at 09:58; Admin Dose 30 ML; Start 03/30/19 at 09:00 Senna (Senokot) 2 tab DAILY GTB ; Start 03/30/19 at 09:00 Zinc Sulfate (Zinc Sulfate) 220 mg DAILY GTB Last administered on 03/31/19at 08:48; Admin Dose 220 MG; Start 03/30/19 at 09:00 Miscellaneous Information 1 ea NOTE XX ; Start 03/29/19 at 17:00 Glucose (Glutose) 15 gm Q15M PRN PO DECREASED GLUCOSE; Start 03/29/19 at 17:00 Glucose (Glutose) 22.5 gm Q15M PRN PO DECREASED GLUCOSE; Start 03/29/19 at 17:00 Dextrose (D50w Syringe) 25 ml Q15M PRN IV DECREASED GLUCOSE; Start 03/29/19 at 17:00 Dextrose (D50w Syringe) 50 ml Q15M PRN IV DECREASED GLUCOSE; Start 03/29/19 at 17:00 Glucagon (Glucagen) 1 mg Q15M PRN IM DECREASED GLUCOSE; Start 03/29/19 at 17:00 Glucose (Glutose) 15 gm Q15M PRN BUCCAL DECREASED GLUCOSE; Start 03/29/19 at 17:00 Labetalol HCl (Labetalol) 20 mg Q4 PRN IV sbp >170 Last administered on 03/29/19at 17:55; Admin Dose 20 MG; Start 03/29/19 at 18:00 Insulin Glargine (Lantus) 5 units QHS SC Last administered on 03/30/19at 21:06; Admin Dose 5 UNITS; Start 03/29/19 at 21:00 Diagnostic Test (Pha) (Accu-Chek) 1 ea Q4 XX Last administered on 03/31/19at 0 5:04; Admin Dose 1 EA; Start 03/30/19 at 01:00 Phenylephrine HCl 80 mg/Dextrose 250 ml @ 18.75 mls/ hr TITRATE IV Last administered on 03/31/19at 09:05; Admin Dose 28.13 MLS/HR; Start 03/30/19 at 01: 00 Piperacillin Sod/ Tazobactam Sod 50 ml @ 100 mls/hr Q8 IVPB Last administered on 03/31/19at 05:04; Admin Dose 100 MLS/HR; Start 03/30/19 at 14:00 Fentanyl 100 ml @ 5 mls/hr TITRATE IV Last administered on 03/30/19at 22:35; Admin Dose 7.5 MLS/HR; Start 03/30/19 at 15:00 Dextrose/Sodium Chloride 1,000 ml @ 100 mls/hr Q10H IV Last administered on 03/31/19at 01:55; Admin Dose 100 MLS/HR; Start 03/30/19 at 15:30 Vancomycin HCl 250 ml @ 125 mls/hr ONCE IVPB ; Start 03/31/19 at 14:00; Stop 03/31/19 at 23:59 TELMA ANDERSON MD March 31, 2019 11:17
--- NOTE | 2019-03-31 11:25 | PN ---
Date/Time of Note Date/Time of Note DATE: 03/31/19 TIME: 11:22 Assessment/Plan VTE Prophylaxis [place] [facility] [place] risk: 8 SCD applied [place] [facility] [place] Yes Pharmacological prophylaxis: NA/contraindicated Pharm contraindication: bleeding, renal impairment Assessment/Plan Hospital Course 1. Septic shock secondary to HCAP and/or aspiration pneumonia Patient with fevers and leukocytosis Urine culture is growing gram-negative rods, 1/2 blood culture growing staph Broad-spectrum antibiotics with vancomycin and Zosyn ID consultation appreciated Pressors as needed 2. Chronic encephalopathy and respiratory failure secondary to history of ruptured aneurysm 4 months ago Patient resides in a subacute facility Continue vent support Pulmonology consultation 3. Acute kidney injury versus CKD-improving Etiology likely secondary to shock Baseline creatinine unknown IV fluids and monitor Nephrology consultation appreciated Renal ultrasound shows no significant findings 4. Diabetes Schedule insulin and sliding scale 5. History of hypertension Hold home meds secondary to sepsis Prophylaxis: SCDs DC planning: Continue antibiotics, not stable for DC Result Diagram: 03/31/19 0430 03/31/19 0430 Results 24hrs Laboratory Tests Test 03/30/19 13:45 03/30/19 17:10 03/30/19 20:59 03/31/19 01:33 Bedside Glucose 70 79 92 103 Test 03/31/19 04:30 03/31/19 05:00 03/31/19 05:03 03/31/19 09:11 White Blood Count 14.1 H Red Blood Count 2.50 L Hemoglobin 7.4 L Hematocrit 25.2 L Mean Corpuscular 100.8 Volume Mean Corpuscular 29.6 Hemoglobin Mean Corpuscular 29.4 L Hemoglobin Concen t Red Cell 17.1 H Distribution Width Platelet Count 262 Mean Platelet 9.9 Volume Immature 1.900 H Granulocytes % Neutrophils % Segmented 36 L Neutrophils % (Manual) Band Neutrophils 39 H % (Manual) Lymphocytes % Lymphocytes % 11 L (Manual) Monocytes % Monocytes % 4 (Manual) Eosinophils % Eosinophils % 6 (Manual) Basophils % Metamyelocytes % 2 H (manual) Myelocytes % 1 H (Manual) Promyelocytes % 1 H (Manual) Nucleated Red 0.2 H Blood Cells % Immature 0.270 H Granulocytes # Neutrophils # Neutrophils # 5.8 (Manual) Band Neutrophils 5.4 H # Lymphocytes 1.5 (Manual) Lymphocytes # Monocytes # Monocytes # 0.5 (Manual) Eosinophils # Basophils # Metamyelocytes # 0.2 H Myelocytes # 0.1 H Promyelocytes # 0.1 H Nucleated Red Blood Cells # Platelet Estimate NORMAL Giant Platelets 3 H Polychromasia 3+ Poikilocytosis 3+ Sodium Level 145 H Potassium Level 4.0 Chloride Level 115 H Carbon Dioxide 18 L Level Anion Gap 12 Blood Urea 75 H Nitrogen Creatinine 3.68 H Est Glomerular 13 L Filtrat Rate mL/min Glucose Level 90 Lactic Acid Level 4.1 *H Calcium Level 9.2 Random Vancomycin 13.7 Level Blood Gas Blood arterial Specimen Source Arterial Blood 03/31/2019 4:54:1 Date Drawn 1 AM Arterial Blood pH 7.322 L (Temp corrected) Arterial Blood 29.2 L pCO2 (Temp correct) Arterial Blood 73.3 L pO2 (Temp corrected) Arterial Blood 14.8 L HCO3 Arterial Blood -10.2 L Base Excess Arterial Blood 92.7 L Oxygen Saturation Christopher Test ACCEPTAB Arterial Blood Right Radial Gas Puncture Site Arterial 0.3 Blood Carboxyhemo globin Arterial Blood 0.3 Methemoglobin Blood Gas A-a O2 178.3 H Differential Oxyhemoglobin 92.1 L Percent Blood Gas 37.0 Temperature Blood Gas 14.0 Respiration Rate Blood Gas Actual 23 Respiration Rate Blood Gas VENT - AC Modality FiO2 40.0 Blood Gas Tidal 450.0 Volume Blood Gas Low 5.0 PEEP Setting Blood Gas 30.0 Inspiratory Pressure Blood Gas LW Notified Whom Blood Gas 03/31/2019 5:05:0 Notified Time 2 AM Bedside Glucose 98 104 Subjective 24 Hr Interval Summary Subjective hx not possible: pt non-verbal Exam/Review of Systems Exam Vitals Vital Signs Date Temp Pulse Resp B/P (MAP) Pulse Ox O2 O2 Flow FiO2 Time Delivery Rate 03/31/19 72 20 99/63 (75) 91 Mechanical 11:00 Ventilator 03/31/19 40 09:45 03/31/19 98.4 08:00 Intake and Output 03/30/19 03/30/19 03/31/19 1515:00 23:00 07:00 IntakeIntake Total 838.13 ml 2277.54 ml 916.91 ml OutputOutput Total 80 ml 525 ml 135 ml BalanceBalance 758.13 ml 1752.54 ml 781.91 ml Constitutional: non-verbal Respiratory: clear to auscultation Cardiovascular: regular rate and rhythm Gastrointestinal: soft; No distended Musculoskeletal: nl extremities to inspection Results Results 24hrs Laboratory Tests Test 03/30/19 13:45 03/30/19 17:10 03/30/19 20:59 03/31/19 01:33 Bedside Glucose 70 79 92 103 Test 03/31/19 04:30 03/31/19 05:00 03/31/19 05:03 03/31/19 09:11 White Blood Count 14.1 H Red Blood Count 2.50 L Hemoglobin 7.4 L Hematocrit 25.2 L Mean Corpuscular 100.8 Volume Mean Corpuscular 29.6 Hemoglobin Mean Corpuscular 29.4 L Hemoglobin Concen t Red Cell 17.1 H Distribution Width Platelet Count 262 Mean Platelet 9.9 Volume Immature 1.900 H Granulocytes % Neutrophils % Segmented 36 L Neutrophils % (Manual) Band Neutrophils 39 H % (Manual) Lymphocytes % Lymphocytes % 11 L (Manual) Monocytes % Monocytes % 4 (Manual) Eosinophils % Eosinophils % 6 (Manual) Basophils % Metamyelocytes % 2 H (manual) Myelocytes % 1 H (Manual) Promyelocytes % 1 H (Manual) Nucleated Red 0.2 H Blood Cells % Immature 0.270 H Granulocytes # Neutrophils # Neutrophils # 5.8 (Manual) Band Neutrophils 5.4 H # Lymphocytes 1.5 (Manual) Lymphocytes # Monocytes # Monocytes # 0.5 (Manual) Eosinophils # Basophils # Metamyelocytes # 0.2 H Myelocytes # 0.1 H Promyelocytes # 0.1 H Nucleated Red Blood Cells # Platelet Estimate NORMAL Giant Platelets 3 H Polychromasia 3+ Poikilocytosis 3+ Sodium Level 145 H Potassium Level 4.0 Chloride Level 115 H Carbon Dioxide 18 L Level Anion Gap 12 Blood Urea 75 H Nitrogen Creatinine 3.68 H Est Glomerular 13 L Filtrat Rate mL/min Glucose Level 90 Lactic Acid Level 4.1 *H Calcium Level 9.2 Random Vancomycin 13.7 Level Blood Gas Blood arterial Specimen Source Arterial Blood 03/31/2019 4:54:1 Date Drawn 1 AM Arterial Blood pH 7.322 L (Temp corrected) Arterial Blood 29.2 L pCO2 (Temp correct) Arterial Blood 73.3 L pO2 (Temp corrected) Arterial Blood 14.8 L HCO3 Arterial Blood -10.2 L Base Excess Arterial Blood 92.7 L Oxygen Saturation Christopher Test ACCEPTAB Arterial Blood Right Radial Gas Puncture Site Arterial 0.3 Blood Carboxyhemo globin Arterial Blood 0.3 Methemoglobin Blood Gas A-a O2 178.3 H Differential Oxyhemoglobin 92.1 L Percent Blood Gas 37.0 Temperature Blood Gas 14.0 Respiration Rate Blood Gas Actual 23 Respiration Rate Blood Gas VENT - AC Modality FiO2 40.0 Blood Gas Tidal 450.0 Volume Blood Gas Low 5.0 PEEP Setting Blood Gas 30.0 Inspiratory Pressure Blood Gas LW Notified Whom Blood Gas 03/31/2019 5:05:0 Notified Time 2 AM Bedside Glucose 98 104 Medications Medication Current Medications IV Flush (NS 3 ml) 3 ml PER PROTOCOL IV ; Start 03/29/19 at 16:00 Ondansetron HCl (Zofran Inj) 4 mg Q6H PRN IV NAUSEA/VOMITING Last administered on 03/30/19 14:11; Admin Dose 4 MG; Start 03/29/19 at 16:00 Morphine Sulfate (morphine) 2 mg Q4H PRN IV .SEVERE PAIN 7-10 Last administered on 03/29/19 21:03; Admin Dose 2 MG; Start 03/29/19 at 16:00 Vancomycin HCl (Vanco Iv Per Pharmacy) VANCOMYCIN PER PHARMACY PER PROTOCOL XX ; Start 03/29/19 at 16:00 Amantadine HCl (Symmetrel) 100 mg BID GTB Last administered on 03/31/19 08:48; Admin Dose 100 MG; Start 03/29/19 at 21:00 Ascorbic Acid (Vitamin C) 500 mg DAILY GTB Last administered on 03/31/19 08:48; Admin Dose 500 MG; Start 03/30/19 at 09:00 Calcium Carbonate (Tums) 500 mg BID GTB Last administered on 03/31/19 08:48; Admin Dose 500 MG; Start 03/29/19 at 21:00 Folic Acid (Folic Acid) 1 mg DAILY GTB Last administered on 03/31/19 08:48; Admin Dose 1 MG; Start 03/30/19 at 09:00 Levetiracetam (Keppra Liq (Ped)) 500 mg BID GTB Last administered on 03/31/19 08:48; Admin Dose 500 MG; Start 03/29/19 at 21:00 Levothyroxine Sodium (Synthroid) 75 mcg BEFORE BREAKFAST GTB Last administered on 5/12/19at 06:04; Admin Dose 75 MCG; Start 03/30/19 at 07:00 Magnesium Hydroxide (Milk Of Mag) 30 ml DAILY GTB Last administered on 03/30/19at 09:58; Admin Dose 30 ML; Start 03/30/19 at 09:00 Senna (Senokot) 2 tab DAILY GTB ; Start 03/30/19 at 09:00 Zinc Sulfate (Zinc Sulfate) 220 mg DAILY GTB Last administered on 03/31/19at 08:48; Admin Dose 220 MG; Start 03/30/19 at 09:00 Miscellaneous Information 1 ea NOTE XX ; Start 03/29/19 at 17:00 Glucose (Glutose) 15 gm Q15M PRN PO DECREASED GLUCOSE; Start 03/29/19 at 17:00 Glucose (Glutose) 22.5 gm Q15M PRN PO DECREASED GLUCOSE; Start 03/29/19 at 17:00 Dextrose (D50w Syringe) 25 ml Q15M PRN IV DECREASED GLUCOSE; Start 03/29/19 at 17:00 Dextrose (D50w Syringe) 50 ml Q15M PRN IV DECREASED GLUCOSE; Start 03/29/19 at 17:00 Glucagon (Glucagen) 1 mg Q15M PRN IM DECREASED GLUCOSE; Start 03/29/19 at 17:00 Glucose (Glutose) 15 gm Q15M PRN BUCCAL DECREASED GLUCOSE; Start 03/29/19 at 17:00 Labetalol HCl (Labetalol) 20 mg Q4 PRN IV sbp >170 Last administered on 03/29/19at 17:55; Admin Dose 20 MG; Start 03/29/19 at 18:00 Insulin Glargine (Lantus) 5 units QHS SC Last administered on 03/30/19at 21:06; Admin Dose 5 UNITS; Start 03/29/19 at 21:00 Diagnostic Test (Pha) (Accu-Chek) 1 ea Q4 XX Last administered on 03/31/19at 05:04; Admin Dose 1 EA; Start 03/30/19 at 01:00 Phenylephrine HCl 80 mg/Dextrose 250 ml @ 18.75 mls/ hr TITRATE IV Last administered on 03/31/19at 09:05; Admin Dose 28.13 MLS/HR; Start 03/30/19 at 01:00 Piperacillin Sod/ Tazobactam Sod 50 ml @ 100 mls/hr Q8 IVPB Last administered on 03/31/19at 05:04; Admin Dose 100 MLS/HR; Start 03/30/19 at 14:00 Fentanyl 100 ml @ 5 mls/hr TITRATE IV Last administered on 03/30/19at 22:35; Admin Dose 7.5 MLS/HR; Start 03/30/19 at 15:00 Dextrose/Sodium Chloride 1,000 ml @ 100 mls/hr Q10H IV Last administered on 03/31/19at 01:55; Admin Dose 100 MLS/HR; Start 03/30/19 at 15:30 Vancomycin HCl 250 ml @ 125 mls/hr ONCE IVPB ; Start 03/31/19 at 14:00; Stop 03/31/19 at 23:59 Sodium Chloride 1,000 ml @ 1,000 mls/hr Q1H ONCE IV ; Start 03/31/19 at 11:30; Stop 03/31/19 at 12:29; Status LIBRA PERDOMO March 31, 2019 11:25
[2019-03-31] MEDS ORDERED: SOD CHLORIDE 0.9% 1,000 ML IV ONE (11:30)
--- NOTE | 2019-03-31 11:54 | CONS ---
Assessment/Plan Assessment/Plan Hospital Course (Demo Recall) ID PROGRESS NOTE CURRENT ABX: DAY # 3-> Vanco IV + Zosyn 24H INTERVAL SUMMARY * Eyes open, non-communicative, clinically not much change from yesterday * Awaiting MICRO results of GPC (+)BCx, and GNR UTI DIAGNOSTIC IMAGING * 03/29/19 CXR:Right upper lobe and bilateral lower lobe infiltrates.Small right pleural effusion. * 03/28/2019 MICRO/OTHER * 03/29/19 GNR UTI : URINE CULTURE Preliminary Organism 1 GRAM NEGATIVE ANTHONY COLONY COUNT >100,000 CFU/ml * 03/29/19: INFLUENZA A & B BY EIA Final INFLU A&B BY EIA INFLUENZA A NEGATIVE (Ref Range Neg) INFLUENZA B NEGATIVE (Ref Range Neg) * 03/29/19 BCX (+) Organism 1 GRAM POS COCCI IN PAIR,CLUSTER PHYSICAL EXAMINATION: GENERAL: VSS HEENT: AT, NC, anicteric NECK: Supple, CHEST: Equal chest rise bilaterally, without dyspnea on observation HEART: Pulse RRR ABDOMEN: Soft / NT EXTREMITIES: Warm, BLEXT SKIN: multiple stg 2 on the buttocks, upper and lower back, with generalized skin rashes. ID ASSESSMENT 58 yo F w/PMHx encephalopathy 2/2 SAH-> hx of Ventric, chronic VDRF admit with: 1. Sepsis on admission w/tachycardia, fevers, HTN crisis-> low B/P, lactic acidosis due to #2 * 03/29/19 BCX (+) Organism 1 GRAM POS COCCI IN PAIR,CLUSTER 2. Bilateral PNA 3. Chronic VDRF 4. HTN 5. Diabetes 6. Acute on chronic kidney disease 7. Dysphagia-> PEG 8. GERD 9. Chronic bedbound state 10. Multiple pressure decubs 11. 03/29/19 GNR UTI : URINE CULTURE Preliminary Organism 1 GRAM NEGATIVE ANTHONY COLONY COUNT >100,000 CFU/ml ABX ALLERGIES: NKDA INVASIVES: PIV CURRENT ABX: DAY #3-> Vanco IV + Zosyn ID RECOMMENDATIONS/PLAN: 1. Continue current ABX 2. Check MRSA nares 3. Obtain respiratory cx 4. Repeat BCx 5. Awaiting results GNR UTI . . Consultation Date/Type/Reason Admit Date/Time March 29, 2019 at 14:37 Initial Consult Date Date/Time of Note DATE: 03/31/19 TIME: 11:47 Exam/Review of Systems Exam Vitals Vital Signs Date Temp Pulse Resp B/P (MAP) Pulse Ox O2 O2 Flow FiO2 Time Delivery Rate 03/31/19 72 34 94 40 11:17 03/31/19 99/63 (75) Mechanical 11:00 Ventilator 03/31/19 98.4 08:00 Intake and Output 03/30/19 03/30/19 03/31/19 1515:00 23:00 07:00 IntakeIntake Total 838.13 ml 2277.54 ml 916.91 ml OutputOutput Total 80 ml 525 ml 135 ml BalanceBalance 758.13 ml 1752.54 ml 781.91 ml Results Result Diagram: 03/31/19 0430 03/31/19 0430 Results 24hrs Laboratory Tests Test 03/30/19 13:45 03/30/19 17:10 03/30/19 20:59 03/31/19 01:33 Bedside Glucose 70 79 92 103 Test 03/31/19 04:30 03/31/19 05:00 03/31/19 05:03 03/31/19 09:11 White Blood Count 14.1 H Red Blood Count 2.50 L Hemoglobin 7.4 L Hematocrit 25.2 L Mean Corpuscular 100.8 Volume Mean Corpuscular 29.6 Hemoglobin Mean Corpuscular 29.4 L Hemoglobin Concen t Red Cell 17.1 H Distribution Width Platelet Count 262 Mean Platelet 9.9 Volume Immature 1.900 H Granulocytes % Neutrophils % Segmented 36 L Neutrophils % (Manual) Band Neutrophils 39 H % (Manual) Lymphocytes % Lymphocytes % 11 L (Manual) Monocytes % Monocytes % 4 (Manual) Eosinophils % Eosinophils % 6 (Manual) Basophils % Metamyelocytes % 2 H (manual) Myelocytes % 1 H (Manual) Promyelocytes % 1 H (Manual) Nucleated Red 0.2 H Blood Cells % Immature 0.270 H Granulocytes # Neutrophils # Neutrophils # 5.8 (Manual) Band Neutrophils 5.4 H # Lymphocytes 1.5 (Manual) Lymphocytes # Monocytes # Monocytes # 0.5 (Manual) Eosinophils # Basophils # Metamyelocytes # 0.2 H Myelocytes # 0.1 H Promyelocytes # 0.1 H Nucleated Red Blood Cells # Platelet Estimate NORMAL Giant Platelets 3 H Polychromasia 3+ Poikilocytosis 3+ Sodium Level 145 H Potassium Level 4.0 Chloride Level 115 H Carbon Dioxide 18 L Level Anion Gap 12 Blood Urea 75 H Nitrogen Creatinine 3.68 H Est Glomerular 13 L Filtrat Rate mL/min Glucose Level 90 Lactic Acid Level 4.1 *H Calcium Level 9.2 Random Vancomycin 13.7 Level Blood Gas Blood arterial Specimen Source Arterial Blood 03/31/2019 4:54:1 Date Drawn 1 AM Arterial Blood pH 7.322 L (Temp corrected) Arterial Blood 29.2 L pCO2 (Temp correct) Arterial Blood 73.3 L pO2 (Temp corrected) Arterial Blood 14.8 L HCO3 Arterial Blood -10.2 L Base Excess Arterial Blood 92.7 L Oxygen Saturation Christopher Test ACCEPTAB Arterial Blood Right Radial Gas Puncture Site Arterial 0.3 Blood Carboxyhemo globin Arterial Blood 0.3 Methemoglobin Blood Gas A-a O2 178.3 H Differential Oxyhemoglobin 92.1 L Percent Blood Gas 37.0 Temperature Blood Gas 14.0 Respiration Rate Blood Gas Actual 23 Respiration Rate Blood Gas VENT - AC Modality FiO2 40.0 Blood Gas Tidal 450.0 Volume Blood Gas Low 5.0 PEEP Setting Blood Gas 30.0 Inspiratory Pressure Blood Gas LW Notified Whom Blood Gas 03/31/2019 5:05:0 Notified Time 2 AM Bedside Glucose 98 104 Medications Medication Current Medications IV Flush (NS 3 ml) 3 ml PER PROTOCOL IV ; Start 03/29/19 at 16:00 Ondansetron HCl (Zofran Inj) 4 mg Q6H PRN IV NAUSEA/VOMITING Last administered on 03/30/19at 14:11; Admin Dose 4 MG; Start 03/29/19 at 16:00 Morphine Sulfate (morphine) 2 mg Q4H PRN IV .SEVERE PAIN 7-10 Last administered on 03/29/19at 21:03; Admin Dose 2 MG; Start 03/29/19 at 16:00 Vancomycin HCl (Vanco Iv Per Pharmacy) VANCOMYCIN PER PHARMACY PER PROTOCOL XX ; Start 03/29/19 at 16:00 Amantadine HCl (Symmetrel) 100 mg BID GTB Last administered on 03/31/19at 08:48; Admin Dose 100 MG; Start 03/29/19 at 21:00 Ascorbic Acid (Vitamin C) 500 mg DAILY GTB Last administered on 03/31/19 08:48; Admin Dose 500 MG; Start 03/30/19 at 09:00 Calcium Carbonate (Tums) 500 mg BID GTB Last administered on 03/31/19 08:48; Admin Dose 500 MG; Start 03/29/19 at 21:00 Folic Acid (Folic Acid) 1 mg DAILY GTB Last administered on 03/31/19 08:48; Admin Dose 1 MG; Start 03/30/19 at 09:00 Levetiracetam (Keppra Liq (Ped)) 500 mg BID GTB Last administered on 03/31/19 08:48; Admin Dose 500 MG; Start 03/29/19 at 21:00 Levothyroxine Sodium (Synthroid) 75 mcg BEFORE BREAKFAST GTB Last administered on 03/31/19 06:04; Admin Dose 75 MCG; Start 03/30/19 at 07:00 Magnesium Hydroxide (Milk Of Mag) 30 ml DAILY GTB Last administered on 03/30/19at 09:58; Admin Dose 30 ML; Start 03/30/19 at 09:00 Senna (Senokot) 2 tab DAILY GTB ; Start 03/30/19 at 09:00 Zinc Sulfate (Zinc Sulfate) 220 mg DAILY GTB Last administered on 03/31/19 08:48; Admin Dose 220 MG; Start 03/30/19 at 09:00 Miscellaneous Information 1 ea NOTE XX ; Start 03/29/19 at 17:00 Glucose (Glutose) 15 gm Q15M PRN PO DECREASED GLUCOSE; Start 03/29/19 at 17:00 Glucose (Glutose) 22.5 gm Q15M PRN PO DECREASED GLUCOSE; Start 03/29/19 at 17:00 Dextrose (D50w Syringe) 25 ml Q15M PRN IV DECREASED GLUCOSE; Start 03/29/19 at 17:00 Dextrose (D50w Syringe) 50 ml Q15M PRN IV DECREASED GLUCOSE; Start 03/29/19 at 17:00 Glucagon (Glucagen) 1 mg Q15M PRN IM DECREASED GLUCOSE; Start 03/29/19 at 17:00 Glucose (Glutose) 15 gm Q15M PRN BUCCAL DECREASED GLUCOSE; Start 03/29/19 at 17:00 Labetalol HCl (Labetalol) 20 mg Q4 PRN IV sbp >170 Last administered on 03/29/19at 17:55; Admin Dose 20 MG; Start 03/29/19 at 18:00 Insulin Glargine (Lantus) 5 units QHS SC Last administered on 03/30/19at 21:06; Admin Dose 5 UNITS; Start 03/29/19 at 21:00 Diagnostic Test (Pha) (Accu-Chek) 1 ea Q4 XX Last administered on 03/31/19 05:04; Admin Dose 1 EA; Start 03/30/19 at 01:00 Phenylephrine HCl 80 mg/Dextrose 250 ml @ 18.75 mls/ hr TITRATE IV Last administered on 03/31/19at 09:05; Admin Dose 28.13 MLS/HR; Start 03/30/19 at 01:00 Piperacillin Sod/ Tazobactam Sod 50 ml @ 100 mls/hr Q8 IVPB Last administered on 03/31/19at 05:04; Admin Dose 100 MLS/HR; Start 03/30/19 at 14:00 Fentanyl 100 ml @ 5 mls/hr TITRATE IV Last administered on 03/30/19at 22:35; Admin Dose 7.5 MLS/HR; Start 03/30/19 at 15:00 Dextrose/Sodium Chloride 1,000 ml @ 100 mls/hr Q10H IV Last administered on 03/31/19at 01:55; Admin Dose 100 MLS/HR; Start 03/30/19 at 15:30 Vancomycin HCl 250 ml @ 125 mls/hr ONCE IVPB ; Start 03/31/19 at 14:00; Stop 03/31/19 at 23:59 Sodium Chloride 1,000 ml @ 1,000 mls/hr Q1H ONCE IV ; Start 03/31/19 at 11:30; Stop 03/31/19 at 12:29 SHO GARCIA NP March 31, 2019 11:54
--- NOTE | 2019-03-31 12:16 | CONS ---
Consult Date/Type/Reason Admit Date/Time March 29, 2019 at 14:37 Initial Consult Date 03/31/19 Type of Consultation: Pulm/CCM Date/Time of Note DATE: 03/31/19 TIME: 12:13 Subjective On mechanical ventilation on neosynephrine gtt. No events overnight. Urine output improving. Objective Vitals Vital Signs Date Temp Pulse Resp B/P (MAP) Pulse Ox O2 O2 Flow FiO2 Time Delivery Rate 03/31/19 72 34 94 40 11:17 03/31/19 99/63 (75) Mechanical 11:00 Ventilator 03/31/19 98.4 08:00 Intake and Output 03/30/19 03/30/19 03/31/19 1515:00 23:00 07:00 IntakeIntake Total 838.13 ml 2277.54 ml 916.91 ml OutputOutput Total 80 ml 525 ml 135 ml BalanceBalance 758.13 ml 1752.54 ml 781.91 ml Exam HEENT: Neck supple; no JVD; no LAD; + trach CVS: Tachy, S1 and S2 CHEST: Coarse rhonchi R > L ABD: Distended, NT, + BS EXT: No c/c; + edema NEURO: Minimally responsive on mechanical ventilation Results/Medications Result Diagram: 03/31/19 0430 03/31/19 0430 Results 24 hrs Laboratory Tests Test 03/30/19 13:45 03/30/19 17:10 03/30/19 20:59 03/31/19 01:33 Bedside Glucose 70 79 92 103 Test 03/31/19 04:30 03/31/19 05:00 03/31/19 05:03 03/31/19 09:11 White Blood Count 14.1 H Red Blood Count 2.50 L Hemoglobin 7.4 L Hematocrit 25.2 L Mean Corpuscular 100.8 Volume Mean Corpuscular 29.6 Hemoglobin Mean Corpuscular 29.4 L Hemoglobin Concen t Red Cell 17.1 H Distribution Width Platelet Count 262 Mean Platelet 9.9 Volume Immature 1.900 H Granulocytes % Neutrophils % Segmented 36 L Neutrophils % (Manual) Band Neutrophils 39 H % (Manual) Lymphocytes % Lymphocytes % 11 L (Manual) Monocytes % Monocytes % 4 (Manual) Eosinophils % Eosinophils % 6 (Manual) Basophils % Metamyelocytes % 2 H (manual) Myelocytes % 1 H (Manual) Promyelocytes % 1 H (Manual) Nucleated Red 0.2 H Blood Cells % Immature 0.270 H Granulocytes # Neutrophils # Neutrophils # 5.8 (Manual) Band Neutrophils 5.4 H # Lymphocytes 1.5 (Manual) Lymphocytes # Monocytes # Monocytes # 0.5 (Manual) Eosinophils # Basophils # Metamyelocytes # 0.2 H Myelocytes # 0.1 H Promyelocytes # 0.1 H Nucleated Red Blood Cells # Platelet Estimate NORMAL Giant Platelets 3 H Polychromasia 3+ Poikilocytosis 3+ Sodium Level 145 H Potassium Level 4.0 Chloride Level 115 H Carbon Dioxide 18 L Level Anion Gap 12 Blood Urea 75 H Nitrogen Creatinine 3.68 H Est Glomerular 13 L Filtrat Rate mL/min Glucose Level 90 Lactic Acid Level 4.1 *H Calcium Level 9.2 Random Vancomycin 13.7 Level Blood Gas Blood arterial Specimen Source Arterial Blood 03/31/2019 4:54:1 Date Drawn 1 AM Arterial Blood pH 7.322 L (Temp corrected) Arterial Blood 29.2 L pCO2 (Temp correct) Arterial Blood 73.3 L pO2 (Temp corrected) Arterial Blood 14.8 L HCO3 Arterial Blood -10.2 L Base Excess Arterial Blood 92.7 L Oxygen Saturation Christopher Test ACCEPTAB Arterial Blood Right Radial Gas Puncture Site Arterial 0.3 Blood Carboxyhemo globin Arterial Blood 0.3 Methemoglobin Blood Gas A-a O2 178.3 H Differential Oxyhemoglobin 92.1 L Percent Blood Gas 37.0 Temperature Blood Gas 14.0 Respiration Rate Blood Gas Actual 23 Respiration Rate Blood Gas VENT - AC Modality FiO2 40.0 Blood Gas Tidal 450.0 Volume Blood Gas Low 5.0 PEEP Setting Blood Gas 30.0 Inspiratory Pressure Blood Gas LW Notified Whom Blood Gas 03/31/2019 5:05:0 Notified Time 2 AM Bedside Glucose 98 104 Home Meds Reported Medications Amantadine Hcl* (Amantadine Hcl*) 50 Mg/5 Ml Syrup, 10 ML GTB BID, #300 ML 03/29/19 Pantoprazole* (Protonix*) 40 Mg Tablet.dr, 40 MG GTB DAILY, TAB 03/29/19 Levetiracetam* (Keppra* (Ped)) 100 Mg/Ml Liq, 5 ML GTB BID for 30 Days, BOTTLE 03/29/19 Levothyroxine Sodium* (Synthroid*) 75 Mcg Tablet, 75 MCG GTB BEFORE BREAKFAST, #30 TAB 03/29/19 Prednisone* (Prednisone*) 5 Mg Tab, 5 MG GTB DAILY, TAB 03/29/19 Hydroxychloroquine Sulfate* (Plaquenil*) 200 Mg Tab, 200 MG GTB BID, TAB 03/29/19 Folic Acid* (Folic Acid*) 1 Mg Tablet, 1 MG GTB DAILY, TAB 03/29/19 Doxazosin Mesylate* (Doxazosin Mesylate*) 2 Mg Tablet, 2 MG GTB HS, TAB HOLD IF SBP<110 03/29/19 Calcium Carbonate (Oysco-500) 500 Mg Tablet, 500 MG GTB BID, TAB 03/29/19 L. Acidophilus/Pectin, [employer] (Acidophilus Capsule) 1 Each Capsule, 1 EACH GTB DAILY, CAP 03/29/19 Insulin Regular, Human (Humulin R) 100 Unit/1 Ml Vial, 0 IJ SLIDING SCALE, VIAL IF BS 70-150=0 UNIT,151-200=2 UNITS,201-250=4 UNITS,251-300=6 UNITS, 301-350=8 UNITS, 351-400=10 UNITS,>400=12 UNITS. NOTIFY MD IF BS >400 OR<60. 03/29/19 Insulin Detemir (Levemir Flextouch) 100 Unit/1 Ml Insuln.pen, 5 UNIT SQ QHS, EA 03/29/19 Acetaminophen* (Acetaminophen*) 500 MG Extra Strength Tablet, 1000 MG GTB Q4H PRN for PAIN LEVEL 4-6/10, TAB 03/29/19 Acetaminophen* (Tylenol*) 325 Mg Tablet, 650 MG GTB NEEDED PRN for TRACH TUBE CHANGE, TAB 03/29/19 Acetaminophen* (Tylenol*) 325 Mg Tablet, 650 MG GTB Q4H PRN for MILD PAIN LEVEL 1-3, TAB AND FEVER 03/29/19 Acetaminophen* (Tylenol*) 325 Mg Tablet, 650 MG GTB BID PRN for PAIN AND OR ELEVATED TEMP, TAB 03/29/19 Zinc Sulfate* (Zinc Sulfate*) 220 Mg Tablet, 220 MG GTB DAILY, TAB 03/29/19 Ascorbic Acid (Vitamin C) 500 Mg Tab, 500 MG GTB DAILY, TAB 03/29/19 Multivitamin with Minerals (Multivitamins with Minerals) 1 Each Tablet, 1 EACH GTB DAILY, TAB 03/29/19 Amino Acids/Protein Hydrolys (PRO-STAT LIQUID) 30 Ml Liquid.pkt, 30 ML GTB DAILY SUGAR FREE 03/29/19 Mineral Oil* (Fleet* Mineral Oil Enema) Unknown Strength Oil, 1 APPLIC [place] Q2D PRN for CONSTIPATION, ENEMA 03/29/19 Bisacodyl (Dulcolax) 10 Mg Supp.rect, 10 MG RC DAILY, SUPP.RECT 03/29/19 Magnesium Hydroxide* (Milk Of Magnesia*) 400 Mg/5 Ml Oral.susp, 30 ML GTB DAILY, ML 03/29/19 Sennosides* (Senna Lax*) 8.6 Mg Tablet, 2 TAB GTB DAILY, TAB 03/29/19 Cran/Vitc/Mannose/Inulin/Brom (Uti-Stat Liquid) 3,875 Mg/30 Ml Liquid, 30 ML GTB BID 03/29/19 Medications Current Medications IV Flush (NS 3 ml) 3 ml PER PROTOCOL IV ; Start 03/29/19 at 16:00 Ondansetron HCl (Zofran Inj) 4 mg Q6H PRN IV NAUSEA/VOMITING Last administered on 03/30/19at 14:11; Admin Dose 4 MG; Start 03/29/19 at 16:00 Morphine Sulfate (morphine) 2 mg Q4H PRN IV .SEVERE PAIN 7-10 Last administered on 03/29/19at 21:03; Admin Dose 2 MG; Start 03/29/19 at 16:00 Vancomycin HCl (Vanco Iv Per Pharmacy) VANCOMYCIN PER PHARMACY PER PROTOCOL XX ; Start 03/29/19 at 16:00 Amantadine HCl (Symmetrel) 100 mg BID GTB Last administered on 03/31/19at 08:48; Admin Dose 100 MG; Start 03/29/19 at 21:00 Ascorbic Acid (Vitamin C) 500 mg DAILY GTB Last administered on 03/31/19 08:48; Admin Dose 500 MG; Start 03/30/19 at 09:00 Calcium Carbonate (Tums) 500 mg BID GTB Last administered on 03/31/19 08:48; Admin Dose 500 MG; Start 03/29/19 at 21:00 Folic Acid (Folic Acid) 1 mg DAILY GTB Last administered on 03/31/19at 08:48; Admin Dose 1 MG; Start 03/30/19 at 09:00 Levetiracetam (Keppra Liq (Ped)) 500 mg BID GTB Last administered on 03/31/19at 08:48; Admin Dose 500 MG; Start 03/29/19 at 21:00 Levothyroxine Sodium (Synthroid) 75 mcg BEFORE BREAKFAST GTB Last administered on 03/31/19at 06:04; Admin Dose 75 MCG; Start 03/30/19 at 07:00 Magnesium Hydroxide (Milk Of Mag) 30 ml DAILY GTB Last administered on 03/30/19at 09:58; Admin Dose 30 ML; Start 03/30/19 at 09:00 Senna (Senokot) 2 tab DAILY GTB ; Start 03/30/19 at 09:00 Zinc Sulfate (Zinc Sulfate) 220 mg DAILY GTB Last administered on 03/31/19at 08:48; Admin Dose 220 MG; Start 03/30/19 at 09:00 Miscellaneous Information 1 ea NOTE XX ; Start 03/29/19 at 17:00 Glucose (Glutose) 15 gm Q15M PRN PO DECREASED GLUCOSE; Start 03/29/19 at 17:00 Glucose (Glutose) 22.5 gm Q15M PRN PO DECREASED GLUCOSE; Start 03/29/19 at 17:00 Dextrose (D50w Syringe) 25 ml Q15M PRN IV DECREASED GLUCOSE; Start 03/29/19 at 17:00 Dextrose (D50w Syringe) 50 ml Q15M PRN IV DECREASED GLUCOSE; Start 03/29/19 at 17:00 Glucagon (Glucagen) 1 mg Q15M PRN IM DECREASED GLUCOSE; Start 03/29/19 at 17:00 Glucose (Glutose) 15 gm Q15M PRN BUCCAL DECREASED GLUCOSE; Start 03/29/19 at 17:00 Labetalol HCl (Labetalol) 20 mg Q4 PRN IV sbp >170 Last administered on 03/29/19at 17:55; Admin Dose 20 MG; Start 03/29/19 at 18:00 Insulin Glargine (Lantus) 5 units QHS SC Last administered on 03/30/19at 21:06; Admin Dose 5 UNITS; Start 03/29/19 at 21:00 Diagnostic Test (Pha) (Accu-Chek) 1 ea Q4 XX Last administered on 03/31/19at 05:04; Admin Dose 1 EA; Start 03/30/19 at 01:00 Phenylephrine HCl 80 mg/Dextrose 250 ml @ 18.75 mls/ hr TITRATE IV Last administered on 03/31/19at 09:05; Admin Dose 28.13 MLS/HR; Start 03/30/19 at 01:00 Piperacillin Sod/ Tazobactam Sod 50 ml @ 100 mls/hr Q8 IVPB Last administered on 03/31/19at 05:04; Admin Dose 100 MLS/HR; Start 03/30/19 at 14:00 Fentanyl 100 ml @ 5 mls/hr TITRATE IV Last administered on 03/30/19at 22:35; Admin Dose 7.5 MLS/HR; Start 03/30/19 at 15:00 Dextrose/Sodium Chloride 1,000 ml @ 100 mls/hr Q10H IV Last administered on 03/31/19at 01:55; Admin Dose 100 MLS/HR; Start 03/30/19 at 15:30 Vancomycin HCl 250 ml @ 125 mls/hr ONCE IVPB ; Start 03/31/19 at 14:00; Stop 03/31/19 at 23:59 Sodium Chloride 1,000 ml @ 1,000 mls/hr Q1H ONCE IV ; Start 03/31/19 at 11:30; Stop 03/31/19 at 12:29 Assessment/Plan Assessment/Plan (Daily) IMP: 1. Septic Shock--2/2 HCAP +/- urosepsis 2. HCAP 3. VDRF 4. Chronic Encephalopathy 5. FE 6. H/O Aneurysm s/p repair 7. Lactic Acidosis 2/2 #1 RECS: 1. Continue fluid resuscitation 2. Follow lactate clearance 3. Follow urine output and renal function 4. Broad spectrum abx per ID 5. Follow-up cultures 6. Pressors to MAP > 65 mm Hg 7. Fentanyl gtt 8. VTE and GI prophylaxis 35 min cc time ARLYN GARCIA MD March 31, 2019 12:16
[2019-03-31] MEDS: FENTAnyl (DRIP) 1000 mcg/100mL 100 ML IV SCH ×2 (13:04→22:34)
[2019-03-31] MEDS ORDERED: VANCOMYCIN 1 GM 250 ML IVPB SCH (14:00)
[2019-03-31] MEDS: morphine 2 MG INJ IV PRN (16:35)
[2019-03-31] MEDS ORDERED: LORAZEPAM 2 MG INJ IV PRN (16:45)
[2019-03-31] MEDS: INSULIN GLARGINE [LANTus] (100 UNITS/ML) SYG SC SCH (20:25)
[2019-04-01] VITALS (75 sets, daily range): BP systolic 70–141; BP diastolic 42–110; PULSE 0–159; RESP 13–31
[2019-04-01] MEDS: PHENYLephrine 80 MG in DEXTROSE 5% 242 ML IV SCH ×3 (01:55→14:37)
[2019-04-01] MEDS ORDERED: NA BICARBONATE 8.4% 50 ML SYG IV ONE (03:00)
[2019-04-01] MEDS: ACCU-CHEK XX SCH ×4 (05:39→13:00)
[2019-04-01] MEDS: PIPER-TAZO 2.25 GM/NS 50 ML IVPB SCH (05:40)
[2019-04-01] MEDS: LEVOTHYROXINE 75 MCG TAB GTB SCH (06:51)
[2019-04-01] MEDS ORDERED: NA BICARBONATE 8.4% 50 ML SYG IV SCH (07:00)
--- NOTE | 2019-04-01 07:53 | PN ---
DATE: 04/01/2019 SUBJECTIVE: The patient remains critically ill on pressor support. Urinary output has been marginal . The patient is on full ventilatory support. No other events noted. OBJECTIVE: VITAL SIGNS: Blood pressure is 129/82, respirations 26, pulse 75, temperature 98.6. HEENT: Head is normocephalic. NECK: Shows trach. HEART: Regular rate. LUNGS: Show diminished breath sounds at the base. ABDOMEN: Soft, nontender to palpation. No rebound or guarding. EXTREMITIES: Negative for clubbing, cyanosis. Trace edema. DERMATOLOGIC: No rashes. MUSCULOSKELETAL: No joint effusion. NEUROLOGIC: No change in exam. MEDICATIONS: The patient's medications have been reviewed. LABORATORY DATA: Shows sodium of 148, BUN 70, creatinine 3.71, bicarbonate 18. The patient's ABG wa s reviewed. Toxicology was reviewed. Urinalysis shows a FENa less than 1%, positive pyuria, hematur ia. IMAGING STUDIES: Renal ultrasound shows no evidence of obstructive uropathy. ASSESSMENT AND PLAN: 1. Oligoanuric acute kidney injury with unknown baseline creatinine. Etiology of acute kidney injur y is likely multifactorial secondary to acute tubular necrosis due to sepsis, ischemic hypoperfusion and shock. The patient's renal function has been stable in the last 24 hours; however, urinary outpu t has been marginal. The patient's urinalysis, urine electrolytes and renal ultrasound were reviewed . Recommendation is to continue current medical management. Continue pressor support to maintain MA P of 65. Continue antibiotic therapy. Continue IV hydration. We will monitor closely. No immediat e need for renal replacement therapy at this time; however, we will continue to monitor volume status closely. 2. Metabolic acidosis, etiology is secondary to acute kidney injury, lactic acidosis. The patient's ABG was reviewed. We will continue to monitor. We will consider starting the patient on bicarbonat e drip. We will monitor ABG levels closely. 3. Anemia. Continue to monitor hemoglobin and hematocrit levels. The patient's iron panel was revi ewed. 4. Mineral bone disorder, monitor calcium and phosphorus levels. 5. Hypernatremia. The patient has a free water deficit approximately 2 liters. We will start free water flushes 200 mL q.4h. 6. Septic shock, etiology is secondary to healthcare-associated pneumonia. The patient is currently on pressor support, antibiotic therapy, IV fluids. Cultures have been reviewed. Urine cultures and blood cultures were noted to be positive. 6. Ventilator-dependent respiratory failure. Vent settings and ABG was reviewed. Continue to monit or. 7. Acute on chronic encephalopathy, etiology is toxic metabolic. 8. Diabetes. Continue current insulin regimen. 9. Dysphagia. Continue to monitor. Please note, I spent over 30 minutes of critical care time with this patient. Dictated By: JUJU MARSHALL DO NR/NTS Conf#: [id number] DID#: [id number] CC: JACOBY HAGER MD; LIBRA MARTINEZ MD;*EndCC*
[2019-04-01] MEDS: FENTAnyl (DRIP) 1000 mcg/100mL 100 ML IV SCH (08:47)
[2019-04-01] MEDS: AMANTADINE 100 MG/10 ML POSYR GTB SCH (08:48)
[2019-04-01] MEDS: CALCIUM CARBONATE 500 MG CHEW TAB GTB SCH (08:48)
[2019-04-01] MEDS: BALSAM PERU/CASTOR OIL 60 GM TUBE TOP SCH (08:48)
[2019-04-01] MEDS: ZINC SULFATE 220 MG CAP GTB SCH (08:48)
[2019-04-01] MEDS: LEVETIRACETAM (100 MG/ML PO SYG) GTB SCH (08:48)
[2019-04-01] MEDS: MAGNESIUM HYDROXIDE 30ML CUP GTB SCH (08:48)
[2019-04-01] MEDS: SENNA TAB GTB SCH (08:48)
[2019-04-01] MEDS: FOLIC ACID 1 MG TAB GTB SCH (08:48)
[2019-04-01] MEDS: ASCORBIC ACID 500 MG TAB GTB SCH (08:49)
[2019-04-01] MEDS ORDERED: SODIUM BICARBONATE (IV ADD) 100 MEQ in DEXTROSE 5%-0.45% NACL 1,000 ML IV SCH (11:00)
--- NOTE | 2019-04-01 11:19 | CONS ---
Consult Date/Type/Reason Admit Date/Time March 29, 2019 at 14:37 Initial Consult Date 03/31/19 Type of Consult Pulmonary Date/Time of Note DATE: 04/01/19 TIME: 11:18 Subjective Continues vasopressors. FiO2 100% with a PEEP of 10. Elevated peak pressures. Objective Vital Signs Date Temp Pulse Resp B/P (MAP) Pulse Ox O2 O2 Flow FiO2 Time Delivery Rate 04/01/19 82 17 87/65 (72) 91 Mechanical 10:45 Ventilator 04/01/19 98.1 08:00 04/01/19 100 05:31 Intake and Output 03/31/19 03/31/19 04/01/19 1515:00 23:00 07:00 IntakeIntake Total 2150.59 ml 1373.09 ml 6005.06 ml OutputOutput Total 65 ml 50 ml 155 ml BalanceBalance 2085.59 ml 1323.09 ml 5850.06 ml Exam GENERAL: Frail elderly lady on mechanical ventilation via tracheostomy VITAL SIGNS: per chart NECK: Supple. No JVD or lymphadenopathy. CARDIAC EXAM: S1, S2. No added sounds or murmurs. CHEST: Diminished air entry bilaterally ABDOMEN: Soft, nontender. No guarding or rebound. EXTREMITIES: No cyanosis, clubbing edema +1 NEUROLOGIC: Generalized weakness. Unable to assess Vent Setting Ventilator Support Mode: AC, VC plus Fraction of Inspired Oxygen pe: 100 Positive End Expiratory Pressu: 10.0 Results/Medications Result Diagram: 04/01/19 0430 04/01/19 0430 Results 24 hrs Laboratory Tests Test 03/31/19 13:05 03/31/19 13:15 03/31/19 16:54 03/31/19 20:19 Bedside Glucose 119 122 146 Urine Color YANG Urine Clarity CLOUDY A Urine pH 5.0 Urine Specific 1.019 [place] Urine Ketones NEGATIVE Urine Nitrite NEGATIVE Urine Bilirubin NEGATIVE Urine NEGATIVE Urobilinogen Urine Leukocyte 2+ H Esterase Urine 12 H Microscopic RBC Urine 84 H Microscopic WBC Urine Bacteria FEW A Urine Yeast MANY A (Budding) Urine 0.0 Eosinophils % Urine Hemoglobin NEGATIVE Urine Random 55.30 Creatinine Urine Random 14 L Sodium Urine Glucose NEGATIVE Urine Total 2+ H Protein Test 03/31/19 23:58 04/01/19 01:26 04/01/19 04:30 04/01/19 05:00 Bedside Glucose 143 Blood Gas Blood arterial Blood arterial Specimen Source Arterial Blood 04/01/2019 2:25: 04/01/2019 5:00: Date Drawn 52 AM 06 AM Arterial Blood 7.142 *L 7.235 *L pH (Temp corrected) Arterial Blood 34.8 L 33.0 L pCO2 (Temp correct) Arterial Blood 71.0 L 83.4 pO2 (Temp corrected) Arterial Blood 11.6 L 13.7 L HCO3 Arterial Blood -16.2 L -12.7 L Base Excess Arterial Blood 88.2 L 93.5 L Oxygen Saturatio n Christopher Test N/A N/A Arterial Blood LB LB Gas Puncture Site Arterial 0.3 0.2 Blood Carboxyhem oglobin Arterial Blood 0.3 0.2 Methemoglobin Blood Gas A-a O2 607.2 H 596.6 H Differential Oxyhemoglobin 87.7 L 93.1 Percent Blood Gas 37.0 37.0 Temperature Blood Gas 14.0 20.0 Respiration Rate Blood Gas Actual 35 25 Respiration Rate Blood Gas VENT - AC VENT - AC Modality FiO2 100.0 100.0 Blood Gas Tidal 500.0 500.0 Volume Blood Gas Low 5.0 10.0 PEEP Setting Blood Gas M KATY RN M KATY RN Critical Value Read Back Blood Gas UP UP Notified Whom Blood Gas 04/01/2019 2:38: 04/01/2019 5:12: Notified Time 53 AM 57 AM White Blood 13.1 H Count Red Blood Count 2.60 L Hemoglobin 7.7 L Hematocrit 25.9 L Mean Corpuscular 99.6 Volume Mean Corpuscular 29.6 Hemoglobin Mean Corpuscular 29.7 L Hemoglobin Jamee nt Red Cell 17.2 H Distribution Width Platelet Count 236 Mean Platelet 10.1 Volume Immature 8.900 H Granulocytes % Neutrophils % Segmented 39 Neutrophils % (Manual) Band Neutrophils 39 H % (Manual) Lymphocytes % Lymphocytes % 16 (Manual) Monocytes % Eosinophils % Eosinophils % 4 (Manual) Basophils % Metamyelocytes % 2 H (manual) Nucleated Red 0.5 H Blood Cells % Immature 1.170 H Granulocytes # Neutrophils # Neutrophils # 5.8 (Manual) Band Neutrophils 5.1 H # Lymphocytes 2.0 (Manual) Lymphocytes # Monocytes # Eosinophils # Basophils # Metamyelocytes # 0.2 H Nucleated Red Blood Cells # Platelet NORMAL Estimate Polychromasia 3+ Poikilocytosis 3+ Anisocytosis 3+ Microcytosis 3+ Sodium Level 148 H Potassium Level 3.5 Chloride Level 115 H Carbon Dioxide 18 L Level Anion Gap 15 H Blood Urea 70 H Nitrogen Creatinine 3.71 H Est Glomerular 13 L Filtrat Rate mL/min Glucose Level 148 # Lactic Acid 6.3 *H Level Calcium Level 8.9 Iron Level 109 Total Iron 147 L Binding Capacity Percent Iron 74 H Saturation Test 04/01/19 05:39 04/01/19 05:39 04/01/19 08:10 Bedside Glucose 157 155 Lab Scanned REFERENCE LAB Report Medications Current Medications IV Flush (NS 3 ml) 3 ml PER PROTOCOL IV ; Start 03/29/19 at 16:00 Ondansetron HCl (Zofran Inj) 4 mg Q6H PRN IV NAUSEA/VOMITING Last administered on 03/30/19 14:11; Admin Dose 4 MG; Start 03/29/19 at 16:00 Morphine Sulfate (morphine) 2 mg Q4H PRN IV .SEVERE PAIN 7-10 Last administered on 03/31/19 16:35; Admin Dose 2 MG; Start 03/29/19 at 16:00 Vancomycin HCl (Vanco Iv Per Pharmacy) VANCOMYCIN PER PHARMACY PER PROTOCOL XX ; Start 03/29/19 at 16:00 Amantadine HCl (Symmetrel) 100 mg BID GTB Last administered on 04/01/19 08:48; Admin Dose 100 MG; Start 03/29/19 at 21:00 Ascorbic Acid (Vitamin C) 500 mg DAILY GTB Last administered on 04/01/19 08:49; Admin Dose 500 MG; Start 03/30/19 at 09:00 Calcium Carbonate (Tums) 500 mg BID GTB Last administered on 04/01/19 08:48; Admin Dose 500 MG; Start 03/29/19 at 21:00 Folic Acid (Folic Acid) 1 mg DAILY GTB Last administered on 04/01/19 08:48; Admin Dose 1 MG; Start 03/30/19 at 09:00 Levetiracetam (Keppra Liq (Ped)) 500 mg BID GTB Last administered on 04/01/19 08:48; Admin Dose 500 MG; Start 03/29/19 at 21:00 Levothyroxine Sodium (Synthroid) 75 mcg BEFORE BREAKFAST GTB Last administered on 5/13/19at 06:51; Admin Dose 75 MCG; Start 03/30/19 at 07:00 Magnesium Hydroxide (Milk Of Mag) 30 ml DAILY GTB Last administered on 04/01/19at 08:48; Admin Dose 30 ML; Start 03/30/19 at 09:00 Senna (Senokot) 2 tab DAILY GTB Last administered on 04/01/19at 08:48; Admin Dose 2 TAB; Start 03/30/19 at 09:00 Zinc Sulfate (Zinc Sulfate) 220 mg DAILY GTB Last administered on 04/01/19at 08:48; Admin Dose 220 MG; Start 03/30/19 at 09:00 Miscellaneous Information 1 ea NOTE XX ; Start 03/29/19 at 17:00 Glucose (Glutose) 15 gm Q15M PRN PO DECREASED GLUCOSE; Start 03/29/19 at 17:00 Glucose (Glutose) 22.5 gm Q15M PRN PO DECREASED GLUCOSE; Start 03/29/19 at 17:00 Dextrose (D50w Syringe) 25 ml Q15M PRN IV DECREASED GLUCOSE; Start 03/29/19 at 17:00 Dextrose (D50w Syringe) 50 ml Q15M PRN IV DECREASED GLUCOSE; Start 03/29/19 at 17:00 Glucagon (Glucagen) 1 mg Q15M PRN IM DECREASED GLUCOSE; Start 03/29/19 at 17:00 Glucose (Glutose) 15 gm Q15M PRN BUCCAL DECREASED GLUCOSE; Start 03/29/19 at 17:00 Labetalol HCl (Labetalol) 20 mg Q4 PRN IV sbp >170 Last administered on 03/29/19at 17:55; Admin Dose 20 MG; Start 03/29/19 at 18:00 Insulin Glargine (Lantus) 5 units QHS SC Last administered on 03/31/19at 20:25; Admin Dose 5 UNITS; Start 03/29/19 at 21:00 Diagnostic Test (Pha) (Accu-Chek) 1 ea Q4 XX Last administered on 04/01/19at 05:39; Admin Dose 1 EA; Start 03/30/19 at 01:00 Phenylephrine HCl 80 mg/Dextrose 250 ml @ 18.75 mls/ hr TITRATE IV Last administered on 04/01/19at 06:50; Admin Dose 46.88 MLS/HR; Start 03/30/19 at 01:00 Piperacillin Sod/ Tazobactam Sod 50 ml @ 100 mls/hr Q8 IVPB Last administered on 04/01/19at 05:40; Admin Dose 100 MLS/HR; Start 03/30/19 at 14:00 Fentanyl 100 ml @ 5 mls/hr TITRATE IV Last administered on 04/01/19at 08:47; Admin Dose 10 MLS/HR; Start 03/30/19 at 15:00 Lorazepam (Ativan) 0.5 mg Q8H PRN IV AGITATION/ANXIETY Last administered on 03/31/19at 16:51; Admin Dose 0.5 MG; Start 03/31/19 at 16:45 Sodium Bicarbonate 100 meq/Dextrose/ Sodium Chloride 1,100 ml @ 100 mls/hr Q11H IV Last administered on 04/01/19at 10:45; Admin Dose 100 MLS/HR; Start 04/01/19 at 11:00 Multivitamins (Multivitamin) 30 ml DAILY PEG ; Start 04/02/19 at 09:00; Stop 04/14/19 at 08:00 Assessment/Plan Hospital Course (Demo Recall) IMP: 1. Septic Shock--2/2 HCAP +/- urosepsis 2. HCAP 3. VDRF, with elevated peak inspiratory pressures 4. Chronic Encephalopathy 5. FE 6. H/O Aneurysm s/p repair 7. Lactic Acidosis 2/2 #1 RECS: 1. Continue fluid resuscitation 2. Follow lactate clearance 3. Follow urine output and renal function 4. Broad spectrum abx per ID 5. Follow-up cultures 6. Pressors to MAP > 65 mm Hg 7. Fentanyl gtt 8. VTE and GI prophylaxis 9. Continue mechanical ventilation decrease PEEP and tidal volume as tolerated 35 min cc time HARJEET MENDOZA MD, [facility] April 01, 2019 11:19
--- NOTE | 2019-04-01 12:38 | CONS ---
Assessment/Plan Assessment/Plan Hospital Course (Demo Recall) Patient is noncommunicative lying comfortably in bed no fevers overnight. She is on 200 mics of Reinier-Synephrine drip WBC 13.1 H&H 7.7 and 25.9 platelets 236 lactic acid 8 BUN 70 creatinine 3.71 Microbiology: Blood culture on admission grew MRSA, nares swab positive for MRSA, repeat blood cultures negative, stool for C. difficile positive Indwelling: Trach PEG Momin right femoral triple-lumen catheter Antimicrobials: Zosyn, vancomycin Chest x-ray this morning revealed pulmonary vascular congestion/edema/pneumonia or ARDS Physical examination: Well-developed chronically ill-appearing obese middle-aged woman who is noncommunicative in no distress. Head atraumatic normocephalic neck is supple tracheostomy present chest rise symmetrical breath sounds diminished bases. Heart: S1-S2. Abdomen obese soft, bowel tones present. Extremities with trace edema. Skin was generalized edema very dry scaly Assessment: #1. Severe sepsis with shock #2. Healthcare associated pneumonia #3. C. difficile colitis #4. Multidrug-resistant UTI #5. Acute on chronic kidney disease #6. Skin rash rule out Machado-Paulie's #7. MRSA nares colonization #8. Diabetes #9. Acute on chronic encephalopathy Plan: Change antibiotics to Zyvox, colistin and Flagyl, add oral vancomycin and topical Bactroban to nares. Consider trial of steroids. Consider CT of the abdomen to rule out ischemia Consultation Date/Type/Reason Admit Date/Time March 29, 2019 at 14:37 Initial Consult Date 03/31/19 Type of Consult id Date/Time of Note DATE: 04/01/19 TIME: 12:38 Exam/Review of Systems Exam Vitals Vital Signs Date Temp Pulse Resp B/P (MAP) Pulse Ox O2 O2 Flow FiO2 Time Delivery Rate 04/01/19 82 17 87/65 (72) 91 Mechanical 10:45 Ventilator 04/01/19 100 08:00 04/01/19 98.1 08:00 Intake and Output 03/31/19 03/31/19 04/01/19 1515:00 23:00 07:00 IntakeIntake Total 2150.59 ml 1373.09 ml 6161.94 ml OutputOutput Total 65 ml 50 ml 155 ml BalanceBalance 2085.59 ml 1323.09 ml 6006.94 ml Results Result Diagram: 04/01/19 0430 04/01/19 0430 Results 24hrs Laboratory Tests Test 03/31/19 13:05 03/31/19 13:15 03/31/19 16:54 03/31/19 20:19 Bedside Glucose 119 122 146 Urine Color YANG Urine Clarity CLOUDY A Urine pH 5.0 Urine Specific 1.019 Nunda Urine Ketones NEGATIVE Urine Nitrite NEGATIVE Urine Bilirubin NEGATIVE Urine NEGATIVE Urobilinogen Urine Leukocyte 2+ H Esterase Urine 12 H Microscopic RBC Urine 84 H Microscopic WBC Urine Bacteria FEW A Urine Yeast MANY A (Budding) Urine 0.0 Eosinophils % Urine Hemoglobin NEGATIVE Urine Random 55.30 Creatinine Urine Random 14 L Sodium Urine Glucose NEGATIVE Urine Total 2+ H Protein Test 03/31/19 23:58 04/01/19 01:26 04/01/19 04:30 04/01/19 05:00 Bedside Glucose 143 Blood Gas Blood arterial Blood arterial Specimen Source Arterial Blood 04/01/2019 2:25: 04/01/2019 5:00: Date Drawn 52 AM 06 AM Arterial Blood 7.142 *L 7.235 *L pH (Temp corrected) Arterial Blood 34.8 L 33.0 L pCO2 (Temp correct) Arterial Blood 71.0 L 83.4 pO2 (Temp corrected) Arterial Blood 11.6 L 13.7 L HCO3 Arterial Blood -16.2 L -12.7 L Base Excess Arterial Blood 88.2 L 93.5 L Oxygen Saturatio n Christopher Test N/A N/A Arterial Blood LB LB Gas Puncture Site Arterial 0.3 0.2 Blood Carboxyhem oglobin Arterial Blood 0.3 0.2 Methemoglobin Blood Gas A-a O2 607.2 H 596.6 H Differential Oxyhemoglobin 87.7 L 93.1 Percent Blood Gas 37.0 37.0 Temperature Blood Gas 14.0 20.0 Respiration Rate Blood Gas Actual 35 25 Respiration Rate Blood Gas VENT - AC VENT - AC Modality FiO2 100.0 100.0 Blood Gas Tidal 500.0 500.0 Volume Blood Gas Low 5.0 10.0 PEEP Setting Blood Gas Alf BURNS RN Critical Value Read Back Blood Gas UP UP Notified Whom Blood Gas 04/01/2019 2:38: 04/01/2019 5:12: Notified Time 53 AM 57 AM White Blood 13.1 H Count Red Blood Count 2.60 L Hemoglobin 7.7 L Hematocrit 25.9 L Mean Corpuscular 99.6 Volume Mean Corpuscular 29.6 Hemoglobin Mean Corpuscular 29.7 L Hemoglobin Jamee nt Red Cell 17.2 H Distribution Width Platelet Count 236 Mean Platelet 10.1 Volume Immature 8.900 H Granulocytes % Neutrophils % Segmented 39 Neutrophils % (Manual) Band Neutrophils 39 H % (Manual) Lymphocytes % Lymphocytes % 16 (Manual) Monocytes % Eosinophils % Eosinophils % 4 (Manual) Basophils % Metamyelocytes % 2 H (manual) Nucleated Red 0.5 H Blood Cells % Immature 1.170 H Granulocytes # Neutrophils # Neutrophils # 5.8 (Manual) Band Neutrophils 5.1 H # Lymphocytes 2.0 (Manual) Lymphocytes # Monocytes # Eosinophils # Basophils # Metamyelocytes # 0.2 H Nucleated Red Blood Cells # Platelet NORMAL Estimate Polychromasia 3+ Poikilocytosis 3+ Anisocytosis 3+ Microcytosis 3+ Sodium Level 148 H Potassium Level 3.5 Chloride Level 115 H Carbon Dioxide 18 L Level Anion Gap 15 H Blood Urea 70 H Nitrogen Creatinine 3.71 H Est Glomerular 13 L Filtrat Rate mL/min Glucose Level 148 # Lactic Acid 6.3 *H Level Calcium Level 8.9 Iron Level 109 Total Iron 147 L Binding Capacity Percent Iron 74 H Saturation Test 04/01/19 05:39 04/01/19 05:39 04/01/19 08:10 04/01/19 11:17 Bedside Glucose 157 155 Lab Scanned REFERENCE LAB Report Lactic Acid 8.0 *H Level Medications Medication Current Medications IV Flush (NS 3 ml) 3 ml PER PROTOCOL IV ; Start 03/29/19 at 16:00 Ondansetron HCl (Zofran Inj) 4 mg Q6H PRN IV NAUSEA/VOMITING Last administered on 03/30/19at 14:11; Admin Dose 4 MG; Start 03/29/19 at 16:00 Morphine Sulfate (morphine) 2 mg Q4H PRN IV .SEVERE PAIN 7-10 Last administered on 03/31/19at 16:35; Admin Dose 2 MG; Start 03/29/19 at 16:00 Vancomycin HCl (Vanco Iv Per Pharmacy) VANCOMYCIN PER PHARMACY PER PROTOCOL XX ; Start 03/29/19 at 16:00 Amantadine HCl (Symmetrel) 100 mg BID GTB Last administered on 04/01/19at 08:48; Admin Dose 100 MG; Start 03/29/19 at 21:00 Ascorbic Acid (Vitamin C) 500 mg DAILY GTB Last administered on 04/01/19 08:49; Admin Dose 500 MG; Start 03/30/19 at 09:00 Calcium Carbonate (Tums) 500 mg BID GTB Last administered on 04/01/19 08:48; Admin Dose 500 MG; Start 03/29/19 at 21:00 Folic Acid (Folic Acid) 1 mg DAILY GTB Last administered on 04/01/19 08:48; Admin Dose 1 MG; Start 03/30/19 at 09:00 Levetiracetam (Keppra Liq (Ped)) 500 mg BID GTB Last administered on 04/01/19 08:48; Admin Dose 500 MG; Start 03/29/19 at 21:00 Levothyroxine Sodium (Synthroid) 75 mcg BEFORE BREAKFAST GTB Last administered on 04/01/19 06:51; Admin Dose 75 MCG; Start 03/30/19 at 07:00 Magnesium Hydroxide (Milk Of Mag) 30 ml DAILY GTB Last administered on 04/01/19 08:48; Admin Dose 30 ML; Start 03/30/19 at 09:00 Senna (Senokot) 2 tab DAILY GTB Last administered on 04/01/19 08:48; Admin Dose 2 TAB; Start 03/30/19 at 09:00 Zinc Sulfate (Zinc Sulfate) 220 mg DAILY GTB Last administered on 04/01/19 08:48; Admin Dose 220 MG; Start 03/30/19 at 09:00 Miscellaneous Information 1 ea NOTE XX ; Start 03/29/19 at 17:00 Glucose (Glutose) 15 gm Q15M PRN PO DECREASED GLUCOSE; Start 03/29/19 at 17:00 Glucose (Glutose) 22.5 gm Q15M PRN PO DECREASED GLUCOSE; Start 03/29/19 at 17:00 Dextrose (D50w Syringe) 25 ml Q15M PRN IV DECREASED GLUCOSE; Start 03/29/19 at 17:00 Dextrose (D50w Syringe) 50 ml Q15M PRN IV DECREASED GLUCOSE; Start 03/29/19 at 17:00 Glucagon (Glucagen) 1 mg Q15M PRN IM DECREASED GLUCOSE; Start 03/29/19 at 17:00 Glucose (Glutose) 15 gm Q15M PRN BUCCAL DECREASED GLUCOSE; Start 03/29/19 at 17:00 Labetalol HCl (Labetalol) 20 mg Q4 PRN IV sbp >170 Last administered on 03/29/19 17:55; Admin Dose 20 MG; Start 03/29/19 at 18:00 Insulin Glargine (Lantus) 5 units QHS SC Last administered on 03/31/19 20:25; Admin Dose 5 UNITS; Start 03/29/19 at 21:00 Diagnostic Test (Pha) (Accu-Chek) 1 ea Q4 XX Last administered on 04/01/19 05:39; Admin Dose 1 EA; Start 03/30/19 at 01:00 Phenylephrine HCl 80 mg/Dextrose 250 ml @ 18.75 mls/ hr TITRATE IV Last administered on 04/01/19 06:50; Admin Dose 46.88 MLS/HR; Start 03/30/19 at 01:00 Piperacillin Sod/ Tazobactam Sod 50 ml @ 100 mls/hr Q8 IVPB Last administered on 04/01/19 05:40; Admin Dose 100 MLS/HR; Start 03/30/19 at 14:00 Fentanyl 100 ml @ 5 mls/hr TITRATE IV Last administered on 04/01/19 08:47; Admin Dose 10 MLS/HR; Start 03/30/19 at 15:00 Lorazepam (Ativan) 0.5 mg Q8H PRN IV AGITATION/ANXIETY Last administered on 16:51; Admin Dose 0.5 MG; Start 03/31/19 at 16:45 Sodium Bicarbonate 100 meq/Dextrose/ Sodium Chloride 1,100 ml @ 100 mls/hr Q11H IV Last administered on 04/01/19 10:45; Admin Dose 100 MLS/HR; Start 04/01/19 at 11:00 Multivitamins (Multivitamin) 30 ml DAILY PEG ; Start 04/02/19 at 09:00; Stop 04/14/19 at 08:00 MAKEDA GAGNON NP April 01, 2019 12:38
[2019-04-01] MEDS ORDERED: NORepinephrine 8MG/250 ML (PMX 250 ML ONE (13:09)
--- NOTE | 2019-04-01 13:15 | PN ---
Date/Time of Note Date/Time of Note DATE: 04/01/19 TIME: 13:12 Assessment/Plan VTE Prophylaxis Risk score (from Ns)>0 risk: 8 SCD applied (from Ns): Yes Pharmacological prophylaxis: heparin Lines/Catheters IV Catheter Type (from Nrs): Central Line Central line still needed: Yes Urinary Cath still in place: Yes Reason Cath still needed: urinary retention, other (indicate) Assessment/Plan Hospital Course 58 yo female with vascular dementia s/p trach for chronic respiraotry failure who presents with septic shock Septic shock from pneumonia: - Abx per ID - Vasopressors to MAP > 65, limit sedation FE: - Likely from sepsis - Monitor creatinine Acute on chornic respiratory failure: - Continue MV per pulmonary Diabetes: - Insulin DNR now., continue goals of care discussions Result Diagram: 04/01/19 04304/01/19 043 Results 24hrs Laboratory Tests Test 03/31/19 13:15 03/31/19 16:54 03/31/19 20:19 03/31/19 23:58 Urine Color YANG Urine Clarity CLOUDY A Urine pH 5.0 Urine Specific 1.019 Cotton Urine Ketones NEGATIVE Urine Nitrite NEGATIVE Urine Bilirubin NEGATIVE Urine NEGATIVE Urobilinogen Urine Leukocyte 2+ H Esterase Urine 12 H Microscopic RBC Urine 84 H Microscopic WBC Urine Bacteria FEW A Urine Yeast MANY A (Budding) Urine 0.0 Eosinophils % Urine Hemoglobin NEGATIVE Urine Random 55.30 Creatinine Urine Random 14 L Sodium Urine Glucose NEGATIVE Urine Total 2+ H Protein Bedside Glucose 122 146 143 Test 04/01/19 01:26 04/01/19 04:30 04/01/19 05:00 04/01/19 05:39 Blood Gas Blood arterial Blood arterial Specimen Source Arterial Blood 04/01/2019 2:25: 04/01/2019 5:00: Date Drawn 52 AM 06 AM Arterial Blood 7.142 *L 7.235 *L pH (Temp corrected) Arterial Blood 34.8 L 33.0 L pCO2 (Temp correct) Arterial Blood 71.0 L 83.4 pO2 (Temp corrected) Arterial Blood 11.6 L 13.7 L HCO3 Arterial Blood -16.2 L -12.7 L Base Excess Arterial Blood 88.2 L 93.5 L Oxygen Saturatio n Christopher Test N/A N/A Arterial Blood LB LB Gas Puncture Site Arterial 0.3 0.2 Blood Carboxyhem oglobin Arterial Blood 0.3 0.2 Methemoglobin Blood Gas A-a O2 607.2 H 596.6 H Differential Oxyhemoglobin 87.7 L 93.1 Percent Blood Gas 37.0 37.0 Temperature Blood Gas 14.0 20.0 Respiration Rate Blood Gas Actual 35 25 Respiration Rate Blood Gas VENT - AC VENT - AC Modality FiO2 100.0 100.0 Blood Gas Tidal 500.0 500.0 Volume Blood Gas Low 5.0 10.0 PEEP Setting Blood Gas Alf BURNS RN Critical Value Read Back Blood Gas UP UP Notified Whom Blood Gas 04/01/2019 2:38: 04/01/2019 5:12: Notified Time 53 AM 57 AM White Blood 13.1 H Count Red Blood Count 2.60 L Hemoglobin 7.7 L Hematocrit 25.9 L Mean Corpuscular 99.6 Volume Mean Corpuscular 29.6 Hemoglobin Mean Corpuscular 29.7 L Hemoglobin Jamee nt Red Cell 17.2 H Distribution Width Platelet Count 236 Mean Platelet 10.1 Volume Immature 8.900 H Granulocytes % Neutrophils % Segmented 39 Neutrophils % (Manual) Band Neutrophils 39 H % (Manual) Lymphocytes % Lymphocytes % 16 (Manual) Monocytes % Eosinophils % Eosinophils % 4 (Manual) Basophils % Metamyelocytes % 2 H (manual) Nucleated Red 0.5 H Blood Cells % Immature 1.170 H Granulocytes # Neutrophils # Neutrophils # 5.8 (Manual) Band Neutrophils 5.1 H # Lymphocytes 2.0 (Manual) Lymphocytes # Monocytes # Eosinophils # Basophils # Metamyelocytes # 0.2 H Nucleated Red Blood Cells # Platelet NORMAL Estimate Polychromasia 3+ Poikilocytosis 3+ Anisocytosis 3+ Microcytosis 3+ Sodium Level 148 H Potassium Level 3.5 Chloride Level 115 H Carbon Dioxide 18 L Level Anion Gap 15 H Blood Urea 70 H Nitrogen Creatinine 3.71 H Est Glomerular 13 L Filtrat Rate mL/min Glucose Level 148 # Lactic Acid 6.3 *H Level Calcium Level 8.9 Iron Level 109 Total Iron 147 L Binding Capacity Percent Iron 74 H Saturation Bedside Glucose 157 Test 04/01/19 05:39 04/01/19 08:10 04/01/19 11:17 Lab Scanned REFERENCE LAB Report Bedside Glucose 155 Lactic Acid 8.0 *H Level Subjective 24 Hr Interval Summary Free Text/Dictation Worsening septic shock, on vasopressors, lactate rising I discussed grave prognosis with patients son. Agrees to DNR. We will continue current care for now but will think about comfort measures Exam/Review of Systems Exam Vitals Vital Signs Date Temp Pulse Resp B/P (MAP) Pulse Ox O2 O2 Flow FiO2 Time Delivery Rate 04/01/19 82 17 87/65 (72) 91 Mechanical 10:45 Ventilator 04/01/19 100 08:00 04/01/19 98.1 08:00 Intake and Output 03/31/19 03/31/19 04/01/19 1515:00 23:00 07:00 IntakeIntake Total 2150.59 ml 1373.09 ml 6161.94 ml OutputOutput Total 65 ml 50 ml 155 ml BalanceBalance 2085.59 ml 1323.09 ml 6006.94 ml Results Results 24hrs Laboratory Tests Test 03/31/19 13:15 03/31/19 16:54 03/31/19 20:19 03/31/19 23:58 Urine Color YANG Urine Clarity CLOUDY A Urine pH 5.0 Urine Specific 1.019 Cotton Urine Ketones NEGATIVE Urine Nitrite NEGATIVE Urine Bilirubin NEGATIVE Urine NEGATIVE Urobilinogen Urine Leukocyte 2+ H Esterase Urine 12 H Microscopic RBC Urine 84 H Microscopic WBC Urine Bacteria FEW A Urine Yeast MANY A (Budding) Urine 0.0 Eosinophils % Urine Hemoglobin NEGATIVE Urine Random 55.30 Creatinine Urine Random 14 L Sodium Urine Glucose NEGATIVE Urine Total 2+ H Protein Bedside Glucose 122 146 143 Test 04/01/19 01:26 04/01/19 04:30 04/01/19 05:00 04/01/19 05:39 Blood Gas Blood arterial Blood arterial Specimen Source Arterial Blood 04/01/2019 2:25: 04/01/2019 5:00: Date Drawn 52 AM 06 AM Arterial Blood 7.142 *L 7.235 *L pH (Temp corrected) Arterial Blood 34.8 L 33.0 L pCO2 (Temp correct) Arterial Blood 71.0 L 83.4 pO2 (Temp corrected) Arterial Blood 11.6 L 13.7 L HCO3 Arterial Blood -16.2 L -12.7 L Base Excess Arterial Blood 88.2 L 93.5 L Oxygen Saturatio n Christopher Test N/A N/A Arterial Blood LB LB Gas Puncture Site Arterial 0.3 0.2 Blood Carboxyhem oglobin Arterial Blood 0.3 0.2 Methemoglobin Blood Gas A-a O2 607.2 H 596.6 H Differential Oxyhemoglobin 87.7 L 93.1 Percent Blood Gas 37.0 37.0 Temperature Blood Gas 14.0 20.0 Respiration Rate Blood Gas Actual 35 25 Respiration Rate Blood Gas VENT - AC VENT - AC Modality FiO2 100.0 100.0 Blood Gas Tidal 500.0 500.0 Volume Blood Gas Low 5.0 10.0 PEEP Setting Blood Gas M KATY CHINO M KATY CHINO Critical Value Read Back Blood Gas UP UP Notified Whom Blood Gas 04/01/2019 2:38: 04/01/2019 5:12: Notified Time 53 AM 57 AM White Blood 13.1 H Count Red Blood Count 2.60 L Hemoglobin 7.7 L Hematocrit 25.9 L Mean Corpuscular 99.6 Volume Mean Corpuscular 29.6 Hemoglobin Mean Corpuscular 29.7 L Hemoglobin Jamee nt Red Cell 17.2 H Distribution Width Platelet Count 236 Mean Platelet 10.1 Volume Immature 8.900 H Granulocytes % Neutrophils % Segmented 39 Neutrophils % (Manual) Band Neutrophils 39 H % (Manual) Lymphocytes % Lymphocytes % 16 (Manual) Monocytes % Eosinophils % Eosinophils % 4 (Manual) Basophils % Metamyelocytes % 2 H (manual) Nucleated Red 0.5 H Blood Cells % Immature 1.170 H Granulocytes # Neutrophils # Neutrophils # 5.8 (Manual) Band Neutrophils 5.1 H # Lymphocytes 2.0 (Manual) Lymphocytes # Monocytes # Eosinophils # Basophils # Metamyelocytes # 0.2 H Nucleated Red Blood Cells # Platelet NORMAL Estimate Polychromasia 3+ Poikilocytosis 3+ Anisocytosis 3+ Microcytosis 3+ Sodium Level 148 H Potassium Level 3.5 Chloride Level 115 H Carbon Dioxide 18 L Level Anion Gap 15 H Blood Urea 70 H Nitrogen Creatinine 3.71 H Est Glomerular 13 L Filtrat Rate mL/min Glucose Level 148 # Lactic Acid 6.3 *H Level Calcium Level 8.9 Iron Level 109 Total Iron 147 L Binding Capacity Percent Iron 74 H Saturation Bedside Glucose 157 Test 04/01/19 05:39 04/01/19 08:10 04/01/19 11:17 Lab Scanned REFERENCE LAB Report Bedside Glucose 155 Lactic Acid 8.0 *H Level Medications Medication Current Medications IV Flush (NS 3 ml) 3 ml PER PROTOCOL IV ; Start 03/29/19 at 16:00 Ondansetron HCl (Zofran Inj) 4 mg Q6H PRN IV NAUSEA/VOMITING Last administered on 03/30/19 14:11; Admin Dose 4 MG; Start 03/29/19 at 16:00 Morphine Sulfate (morphine) 2 mg Q4H PRN IV .SEVERE PAIN 7-10 Last administered on 03/31/19 16:35; Admin Dose 2 MG; Start 03/29/19 at 16:00 Amantadine HCl (Symmetrel) 100 mg BID GTB Last administered on 04/01/19 08:48; Admin Dose 100 MG; Start 03/29/19 at 21:00 Ascorbic Acid (Vitamin C) 500 mg DAILY GTB Last administered on 04/01/19 08:49; Admin Dose 500 MG; Start 03/30/19 at 09:00 Calcium Carbonate (Tums) 500 mg BID GTB Last administered on 04/01/19 08:48; Admin Dose 500 MG; Start 03/29/19 at 21:00 Folic Acid (Folic Acid) 1 mg DAILY GTB Last administered on 04/01/19 08:48; Admin Dose 1 MG; Start 03/30/19 at 09:00 Levetiracetam (Keppra Liq (Ped)) 500 mg BID GTB Last administered on 04/01/19 08:48; Admin Dose 500 MG; Start 03/29/19 at 21:00 Levothyroxine Sodium (Synthroid) 75 mcg BEFORE BREAKFAST GTB Last administered on 04/01/19 06:51; Admin Dose 75 MCG; Start 03/30/19 at 07:00 Magnesium Hydroxide (Milk Of Mag) 30 ml DAILY GTB Last administered on 04/01/19 at 08:48; Admin Dose 30 ML; Start 03/30/19 at 09:00 Senna (Senokot) 2 tab DAILY GTB Last administered on 04/01/19 08:48; Admin Dose 2 TAB; Start 03/30/19 at 09:00 Zinc Sulfate (Zinc Sulfate) 220 mg DAILY GTB Last administered on 04/01/19 08:48; Admin Dose 220 MG; Start 03/30/19 at 09:00 Miscellaneous Information 1 ea NOTE XX ; Start 03/29/19 at 17:00 Glucose (Glutose) 15 gm Q15M PRN PO DECREASED GLUCOSE; Start 03/29/19 at 17:00 Glucose (Glutose) 22.5 gm Q15M PRN PO DECREASED GLUCOSE; Start 03/29/19 at 17:00 Dextrose (D50w Syringe) 25 ml Q15M PRN IV DECREASED GLUCOSE; Start 03/29/19 at 17:00 Dextrose (D50w Syringe) 50 ml Q15M PRN IV DECREASED GLUCOSE; Start 03/29/19 at 17:00 Glucagon (Glucagen) 1 mg Q15M PRN IM DECREASED GLUCOSE; Start 03/29/19 at 17:00 Glucose (Glutose) 15 gm Q15M PRN BUCCAL DECREASED GLUCOSE; Start 03/29/19 at 17:00 Labetalol HCl (Labetalol) 20 mg Q4 PRN IV sbp >170 Last administered on 03/29/19at 17:55; Admin Dose 20 MG; Start 03/29/19 at 18:00 Insulin Glargine (Lantus) 5 units QHS SC Last administered on 03/31/19at 20:25; Admin Dose 5 UNITS; Start 03/29/19 at 21:00 Diagnostic Test (Pha) (Accu-Chek) 1 ea Q4 XX Last administered on 04/01/19at 05:39; Admin Dose 1 EA; Start 03/30/19 at 01:00 Phenylephrine HCl 80 mg/Dextrose 250 ml @ 18.75 mls/ hr TITRATE IV Last administered on 04/01/19at 06:50; Admin Dose 46.88 MLS/HR; Start 03/30/19 at 01:00 Fentanyl 100 ml @ 5 mls/hr TITRATE IV Last administered on 04/01/19at 08:47; Admin Dose 10 MLS/HR; Start 03/30/19 at 15:00 Lorazepam (Ativan) 0.5 mg Q8H PRN IV AGITATION/ANXIETY Last administered on 03/31/19at 16:51; Admin Dose 0.5 MG; Start 03/31/19 at 16:45 Multivitamins (Multivitamin) 30 ml DAILY PEG ; Start 04/02/19 at 09:00; Stop 04/14/19 at 08:00 Colistimethate Sodium 75 mg/ Sodium Chloride 100 ml @ 200 mls/hr Q12 IVPB ; Start 04/01/19 at 13:00; Status UNV Metronidazole 100 ml @ 100 mls/hr Q8 IVPB ; Start 04/01/19 at 14:00; Status UNV Vancomycin HCl (Vancomycin Oral Syringe) 125 mg Q6 PO ; Start 04/01/19 at 18:00; Status UNV Linezolid 300 ml @ 300 mls/hr Q12 IVPB ; Start 04/01/19 at 21:00; Status UNV Mupirocin (Bactroban) 1 applic BID TOP ; Start 04/01/19 at 21:00; Status UNV Norepinephrine 250 ml @ 1.875 mls/ hr TITRATE IV ; Start 04/01/19 at 13:30; Status UNV BRENT CHEN MD April 01, 2019 13:15
[2019-04-01] MEDS ORDERED: NORepinephrine 8MG/250 ML (PMX 250 ML IV SCH (13:30)
[2019-04-01] MEDS ORDERED: metroNIDAZOLE 500 MG/NS (PMX) 100 ML IVPB SCH (14:00)
[2019-04-01] MEDS ORDERED: COLISTIMETHATE 75 MG in SOD CHLORIDE 0.9% 100 ML IVPB SCH (15:00)
--- NOTE | 2019-04-01 17:24 | EN ---
Date/Time of Note Date/Time of Note DATE: 04/01/19 TIME: 17:22 Event Note Medicine Medicine Event Note Called to bedside for pulselessness Patient without pulse or spontaneous respirations x 100 seconds. I was unable to elicit any cranial nerve reflexes. Patient was pronounced about 5 PM. Family was at bedside and was notified. BRENT CHEN MD April 01, 2019 17:23
[2019-04-01] MEDS ORDERED: VANCOMYCIN HCL 250 MG/5ML POSYG PO SCH (18:00)
[2019-04-01] MEDS ORDERED: LINEZOLID 600 MG/D5W (PMX) 300 ML IVPB SCH (21:00)
[2019-04-01] MEDS ORDERED: MUPIROCIN 2% 22 GM OINT TOP SCH (21:00)
[2019-04-02] MEDS ORDERED: MULTIVITAMINS 30 ML CUP PEG SCH (09:00)
--- NOTE | 2019-04-03 17:28 | DES ---
Date/Time of Note Date/Time of Note DATE: 04/03/19 TIME: 17:27 Discharge/ Summary Admission/Discharge Info Admit Date/Time March 29, 2019 at 14:37 Final Diagnosis Septic shock Preliminary Cause of Septic shock Hospital Course 58 yo female with vascular dementia s/p trach for chronic respiraotry failure who presents with septic shock Patient started on antibiotics and vasopressors. Multiorgan failure worsened Grave prognosis discussed with family who elected for DNR Patient shortly therafter BRENT CHEN MD April 03, 2019 17:28
== END 2019-04-01 16:41 | disposition expired | DRG 871 ==
LOC: E/R 13:30 → ICU 14:37
PROVIDERS: ADMIT Internal Medicine; ATTEND Internal Medicine
PROC: 5A1945Z Respiratory Ventilation, 24-96 Consecutive Hours (ICD-10-PCS; principal; 2019-03-29)
DX: A41.9 Sepsis, unspecified organism (principal); R65.21 Severe sepsis with septic shock; J96.01 Acute respiratory failure with hypoxia; J18.9 Pneumonia, unspecified organism; G92 Toxic encephalopathy; N17.9 Acute kidney failure, unspecified; Z99.11 Dependence on respirator [ventilator] status; E87.2 Acidosis; N39.0 Urinary tract infection, site not specified; E87.0 Hyperosmolality and hypernatremia; E86.0 Dehydration; Z93.0 Tracheostomy status; G20 Parkinson's disease; R13.10 Dysphagia, unspecified; Z93.1 Gastrostomy status; E11.9 Type 2 diabetes mellitus without complications; K21.9 Gastro-esophageal reflux disease without esophagitis; I10 Essential (primary) hypertension; D64.9 Anemia, unspecified; Y95 Nosocomial condition; B96.1 Klebsiella pneumoniae [K. pneumoniae] as the cause of diseases classified elsewhere; B95.62 Methicillin resistant Staphylococcus aureus infection as the cause of diseases classified elsewhere; B96.4 Proteus (mirabilis) (morganii) as the cause of diseases classified elsewhere; B96.5 Pseudomonas (aeruginosa) (mallei) (pseudomallei) as the cause of diseases classified elsewhere; Z79.4 Long term (current) use of insulin; Z74.01 Bed confinement status; Z86.73 Personal history of transient ischemic attack (TIA), and cerebral infarction without residual deficits
CPT/HCPCS: 36415; 36600; 71045; 76775; 80048; 80053; 80202; 81001; 82803; 82962; 83036; 83540; 83605; 83690; 83735; 84100; 84155; 84300; 84484; 85025; 85610; 85730; 86850; 86900; 86901; 87070; 87075; 87081; 87086; 87400; 89190; 93005; 94002; 94003; 96374; C1751; G9033; J0692; J1815; J2060; J2270; J2370; J2405; J2543; J3010; J3370; J7030; J7040; J7042; J7070; J7120; P9047